=== PATIENT | female | born 2000 | race African-American/Black ===

== ENCOUNTER 2021-01-09 06:15 | Emergency (ER) | payer BC, OTHER, SELFPAY ==
[2021-01-09 07:42] LABS: Absolute Lymphocytes (CBC) 0.4 K/uL (0.7-4.9); Basophils % 0.4 % (0-1.3); Hematocrit 34.9 % (36.0-45.0); Lymphocytes % 2.8 % (15.3-44.8); MPV 9.3 fL (7.6-11.3); RBC Red Blood Cell Count 4.47 M/uL (3.86-4.86)
[2021-01-09] MEDS ORDERED: MORPHINE 4 MG/ML SYR ONE ×2 (07:45→10:22)
[2021-01-09] MEDS ORDERED: MAGNES/ALUMIN/SIMET 30ML UCUP ONE (07:45)
[2021-01-09] MEDS ORDERED: ONDANSETRON 4 MG/2 ML VIAL ONE ×2 (07:45→13:51)
[2021-01-09] MEDS ORDERED: NA CHLORIDE 0.9% 1,000 ML ONE ×2 (07:46→10:17)
[2021-01-09] MEDS ORDERED: FAMOTIDINE 20 MG/2 ML VIAL IV ONE (07:46)
[2021-01-09] MEDS ORDERED: LIDOCAINE VISCOUS 2% SOLN 15 ML UDC ONE (07:46)
[2021-01-09 07:56] LABS: ALT/SGPT 35 U/L (12-78); AST/SGOT 51 U/L (15-37); Albumin 3.3 g/dL (3.4-5.0); Alkaline Phosphatase 48 U/L (45-117); BUN Blood Urea Nitrogen 12 mg/dL (7-18); Bicarbonate 25 mmol/L (21-32); Bilirubin Direct 0.1 mg/dL (0-0.2); Bilirubin Total 0.4 mg/dL (0.2-1.0); Glucose Level 120 mg/dL (74-106); Lipase 93 U/L (73-393); Potassium 3.5 mmol/L (3.5-5.1); Protein, Total 7.6 g/dL (6.4-8.2); Sodium Level 141 mmol/L (136-145)
[2021-01-09 09:48] LABS: Blood Morphology Comment NOT SEEN (NOT SEEN); Platelet Estimate ADEQ
[2021-01-09 10:20] LABS: Urine Blood 1+ (Negative); Urine Protein NEGATIVE (NEG); Urine Specific Gravity 1.025 (1.005-1.030); Urine pH 6.5 (5.0-7.0)
--- NOTE | 2021-01-09 10:35 | RAD REPORT ---
EXAM DESCRIPTION: CTAbdomen Pelvis W Contrast - 01/09/2021 10:18 am CLINICAL HISTORY: Abdominal pain. ABD PAIN COMPARISON: No comparisons TECHNIQUE: Biphasic CT imaging of the abdomen and pelvis was performed with 100 ml non-ionic IV cont rast. All CT scans are performed using dose optimization technique as appropriate and may include automated exposure control or mA/KV adjustment according to patient size. FINDINGS: The lung bases are clear. The liver has a somewhat heterogenous enhancement pattern with mild periportal edema. No aggressive l iver mass is seen. No intra or extrahepatic biliary tree dilatation. The spleen, pancreas, adrenal glands and kidneys are within normal limits. No bowel obstruction, free air, intra-abdominal free fluid or abscess. The appendix is not identifie d as a discrete structure, however, no secondary findings of appendicitis are identified. Moderate r etained stool throughout the colon. No evidence of significant lymphadenopathy. Mild endometrial flui d with trace amount of pelvic free fluid noted. No suspicious bony findings. IMPRESSION: Heterogenous liver enhancement pattern with mild periportal edema. Underlying hepatic in flammation is a possibility. Small amount of pelvic free fluid is seen with fluid within the endometrium as well. Suggest correlat ion for the possibility of pelvic infection.
[2021-01-09 10:42] LABS: Urine Glucose Trace (Negative)
--- NOTE | 2021-01-09 13:48 | EDPHYS ---
Physician Documentation [facility] Name: Veda Miller Age: 20 yrs Sex: Female : 2000 Arrival Date: 01/09/2021 Time: 06:16 Bed 13 Private MD: ED Physician Isiah Moore HPI: 01/09 06:57 This 20 yrs old Black Female presents to ER via Ambulatory with complaints of ma2 EPIGASTRIC ABD PAIN Pain. 06:57 The patient or guardian reports chest pain that is located primarily in the epigastric ma2 area. The pain does not radiate. Associated signs and symptoms: Pertinent negatives: cough, headache, lower extremity swelling, lightheadedness, shortness of breath, syncope, vomiting. Severity of pain: At its worst the pain was moderate in the emergency department the pain is unchanged. The patient has not experienced similar symptoms in the past. 06:57 The patient has experienced similar episodes in the past. 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 - Social history:: Smoking status: Patient denies any tobacco usage or history of. Patient/guardian denies using alcohol, street drugs, Patient/guardian denies using The patient lives with family. - Family history:: not pertinent. ROS: 06:57 Constitutional: Negative for fever, chills, and weight loss. ma2 06:57 All other systems are negative. Exam: 06:57 Constitutional: This is a well developed, well nourished patient who is awake, alert, ma2 and in no acute distress. Head/Face: Normocephalic, atraumatic. Eyes: Pupils equal round and reactive to light, extra-ocular motions intact. Lids and lashes normal. Conjunctiva and sclera are non-icteric and not injected. Cornea within normal limits. Periorbital areas with no swelling, redness, or edema. ENT: Nares patent. No nasal discharge, no septal abnormalities noted. Tympanic membranes are normal and external auditory canals are clear. Oropharynx with no redness, swelling, or masses, exudates, or evidence of obstruction, uvula midline. Mucous membranes moist. Neck: Trachea midline, no thyromegaly or masses palpated, and no cervical lymphadenopathy. Supple, full range of motion without nuchal rigidity, or vertebral point tenderness. No Meningismus. Chest/axilla: Normal chest wall appearance and motion. Nontender with no deformity. No lesions are appreciated. Cardiovascular: Regular rate and rhythm with a normal S1 and S2. No gallops, murmurs, or rubs. Normal PMI, no JVD. No pulse deficits. Respiratory: Lungs have equal breath sounds bilaterally, clear to auscultation and percussion. No rales, rhonchi or wheezes noted. No increased work of breathing, no retractions or nasal flaring. Abdomen/GI: MILDLY TENDER IN EPIGASTRIC AREA, OTHERWISE Soft, with normal bowel sounds. No distension or tympany. No guarding or rebound. No evidence of tenderness ANYWHERE ELSE IN THE ABDOMIN OTHER THAN EPIGASTRIC AREA Back: No spinal tenderness. No costovertebral tenderness. Full range of motion. Skin: Warm, dry with normal turgor. Normal color with no rashes, no lesions, and no evidence of cellulitis. MS/ Extremity: Pulses equal, no cyanosis. Neurovascular intact. Full, normal range of motion. Neuro: Awake and alert, GCS 15, oriented to person, place, time, and situation. Cranial nerves II-XII grossly intact. Motor strength 5/5 in all extremities. Sensory grossly intact. Cerebellar exam normal. Normal gait. 13:38 : Pelvic Exam: External exam: is normal, Speculum exam: mild bleeding, os that is kdr closed, bimanual exam reveals no cervical motion tenderness. Vital Signs: 06:39 Weight 59.42 kg (R); Height 5 ft. 0 in. (152.40 cm) (R); Pain 8/10; bb 06:51 BP 124 / 74; Pulse 120; Resp 16; Temp 99.3(TE); Pulse Ox 100% on R/A; Pain 8/10; jb4 07:40 BP 119 / 81; Pulse 101; Resp 18 S; Pulse Ox 98% on R/A; jd3 09:09 BP 116 / 72; Pulse 99; Resp 17 S; Pulse Ox 100% on R/A; jd3 10:09 BP 126 / 91; Pulse 98; Resp 17 S; Pulse Ox 98% on R/A; jd3 12:37 BP 113 / 72; Pulse 99; Resp 16 S; Pulse Ox 99% on R/A; jd3 14:44 BP 117 / 70; Pulse 93; Resp 16 S; Pulse Ox 99% on R/A; jd3 06:39 Body Mass Index 25.58 (59.42 kg, 152.40 cm) bb MDM: 06:30 Patient medically screened. ma2 06:57 Differential diagnosis: anxiety, esophagitis, gastritis, gastroesophageal reflux ma2 disease (GERD). Data reviewed: vital signs, nurses notes. Counseling: I had a detailed discussion with the patient and/or guardian regarding: the historical points, exam findings, and any diagnostic results supporting the discharge/admit diagnosis, the presence of at least one elevated blood pressure reading (>120/80) during this emergency department visit. 09:55 ED course: The patient states that her pain is returning and on exam she continues to kdr be mildly tachycardic. 01/09 06:57 Order name: Basic Metabolic Panel [facility] 01/09 06:57 Order name: CBC with Diff [facility] 01/09 06:57 Order name: Hepatic Function [facility] 01/09 06:57 Order name: Lipase [facility] 01/09 06:57 Order name: Test, Serum [facility] 01/09 06:57 Order name: Basic Metabolic Panel; Complete Time: 08:00 [facility] 01/09 06:57 Order name: CBC with Automated Diff; Complete Time: 10:40 [facility] 01/09 06:57 Order name: Liver (Hepatic) Function; Complete Time: 08:00 [facility] 01/09 06:57 Order name: Lipase; Complete Time: 08:00 [facility] 01/09 06:58 Order name: Test Serum, Qualitat; Complete Time: 08:00 [facility] 01/09 07:43 Order name: Manual Differential; Complete Time: 10:40 [facility] 01/09 09:55 Order name: Urine Dipstick--Ancillary (enter results) 01/09 10:20 Order name: Urine Dipstick-Ancillary; Complete Time: 11:28 [facility] 01/09 11:30 Order name: Hepatitis Panel [facility] 01/09 06:57 Order name: IV Saline Lock; Complete Time: 07:25 [facility] 01/09 06:57 Order name: Labs collected and sent; Complete Time: 07:25 [facility] 01/09 09:55 Order name: CT Abd/Pelvis - IV Contrast Only [facility] 01/09 10:36 Order name: CT; Complete Time: 10:40 [facility] 01/09 11:47 Order name: GC (GONORR/CHLAMYDIA) Probe [facility] 01/09 11:47 Order name: Wet Prep; Complete Time: 13:37 kdr 01/09 06:57 Order name: Urine Dipstick-Ancillary (obtain specimen); Complete Time: 09:55 [facility] 01/09 07:08 Order name: EKG - Nurse/Tech; Complete Time: 07:08 jb4 Administered Medications: 07:38 Drug: NS 0.9% 1000 ml Route: IV; Rate: 1 bolus; Site: right antecubital; jd3 07:38 Drug: Pepcid 20 mg Route: IVP; Site: right antecubital; jd3 07:38 Drug: Zofran (Ondansetron) 4 mg Route: IVP; Site: right antecubital; jd3 07:39 Drug: GI Cocktail without - (Maalox Suspension 30 ml, Lidocaine Liquid 2 % 15 jd3 ml) Route: PO; 07:39 Drug: morphine 4 mg Route: IVP; Site: right antecubital; jd3 10:08 Drug: NS 0.9% 1000 ml Route: IV; Rate: 1 bolus; Site: right antecubital; jd3 10:08 Drug: morphine 4 mg Route: IVP; Site: right antecubital; jd3 13:36 Drug: Zofran (Ondansetron) 4 mg Route: IVP; Site: right antecubital; jd3 14:33 Drug: Rocephin - (cefTRIAXone) 1 grams {Note: IV push given per verbal order..} Route: jd3 IVPB; Infused Over: 30 mins; Site: right antecubital; 14:33 Drug: AZITHromycin 1 grams Route: PO; jd3 Disposition: 01/09/21 13:47 Discharged to Home. Impression: Upper abdominal pain, unspecified, Nausea and vomiting. - Condition is Stable. - Discharge Instructions: Abdominal Pain, Adult, Abdominal Pain, Adult, [id number]. - Prescriptions for Zofran 4 mg Oral Tablet - take 1 tablet by ORAL route every 12 hours As needed; 20 tablet. Diclofenac Sodium 75 mg Oral Tablet Sustained Release - take 1 tablet by ORAL route 2 times per day; 30 tablet. Pepcid 20 mg Oral Tablet - take 1 tablet by ORAL route once daily; 20 tablet. Flagyl 500 mg Oral Tablet - take 1 tablet by ORAL route every 12 hours for 10 days; 20 tablet. Levaquin 500 mg Oral Tablet - take 1 tablet by ORAL route once daily for 10 days; 10 tablet. - Medication Reconciliation Form, Thank You Letter, Antibiotic Education, Prescription Opioid Use, Work release form form. - Follow up: Private Physician; When: Tomorrow; Reason: If symptoms return, Continuance of care. - Problem is new. - Symptoms have improved. Signatures: Dispatcher [employer] EDMS Isiah Moore MD MD kdr Faby Sanchez RN RN bb Richard Dean RN RN jb4 Luis Miguel Friend RN RN jd3 Amie Waters MD MD ma2 Corrections: (The following items were deleted from the chart) 14:45 13:47 01/09/2021 13:47 Discharged to Home. Impression: Upper abdominal pain, jd3 unspecified; Nausea and vomiting. Condition is Stable. Discharge Instructions: Abdominal Pain, Adult, Abdominal Pain, Adult, [id number]. Prescriptions for Zofran 4 mg Oral Tablet - take 1 tablet by ORAL route every 12 hours As needed; 20 tablet, Diclofenac Sodium 75 mg Oral Tablet Sustained Release - take 1 tablet by ORAL route 2 times per day; 30 tablet, Pepcid 20 mg Oral Tablet - take 1 tablet by ORAL route once daily; 20 tablet. and Forms are Medication Reconciliation Form, Thank You Letter, Antibiotic Education, Prescription Opioid Use. Follow up: Private Physician; When: Tomorrow; Reason: If symptoms return, Continuance of care. Problem is new. Symptoms have improved. kdr
--- NOTE | 2021-01-09 13:48 | ER ---
Nurse's Notes [facility] Name: Veda Miller Age: 20 yrs Sex: Female : 2000 Arrival Date: 01/09/2021 Time: 06:16 Bed 13 Private MD: Diagnosis: Upper abdominal pain, unspecified;Nausea and vomiting Presentation: 01/09 06:39 Chief complaint: Patient states: she is having pain between her chest and her abdomen bb with diarrhea x 1 since she woke up this morning. Pt was seen by the dentist Tuesday or Tuesday and has been having a headache since then she also had an allergic reaction to the amoxicillin she was given so it was changed to Clindamycin. Coronavirus screen: At this time, the client does not indicate any symptoms associated with coronavirus-19. Ebola Screen: No symptoms or risks identified at this time. Initial Sepsis Screen: Does the patient meet any 2 criteria?. Risk Assessment: Do you want to hurt yourself or someone else? Patient reports no desire to harm self or others. Onset of symptoms was January 09, 2021. 06:39 Method Of Arrival: Ambulatory bb 06:39 Acuity: DAVE 3 bb 07:41 Initial Sepsis Screen: Does the patient have a suspected source of infection? No. jd3 Patient's initial sepsis screen is negative. 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 - Social history:: Smoking status: Patient denies any tobacco usage or history of. Patient/guardian denies using alcohol, street drugs, Patient/guardian denies using The patient lives with family. - Family history:: not pertinent. Screenin:30 Abuse screen: Denies threats or abuse. Nutritional screening: No deficits noted. jb4 Tuberculosis screening: No symptoms or risk factors identified. Fall Risk None identified. Assessment: 06:30 General: Appears in no apparent distress. uncomfortable, Behavior is calm, cooperative, jb4 appropriate for age, Provider notified of pt's currently having chest pain, Okayed to do EKG. Pain: Complains of pain in epigastric area Pain does not radiate. Pain currently is 10 out of 10 on a pain scale. Quality of pain is described as sharp, Pain began 1 day ago. Neuro: Level of Consciousness is awake, alert, obeys commands, Oriented to person, place, time, situation. Cardiovascular: Patient's skin is warm and dry. Rhythm is sinus tachycardia. Respiratory: Airway is patent Respiratory effort is even, unlabored, Respiratory pattern is regular, symmetrical. GI: No signs and/or symptoms were reported involving the gastrointestinal system. : No signs and/or symptoms were reported regarding the genitourinary system. EENT: No signs and/or symptoms were reported regarding the EENT system. Derm: Skin is intact, Skin is pink, warm \T\ dry. Musculoskeletal: Circulation, motion, and sensation intact. Range of motion: intact in all extremities. 07:39 General: Appears in no apparent distress. uncomfortable, Behavior is calm, cooperative, jd3 appropriate for age. Pain: Complains of pain in epigastric area Quality of pain is described as sharp. Neuro: Level of Consciousness is awake, alert, obeys commands, Oriented to person, place, time, situation. Cardiovascular: Capillary refill < 3 seconds Patient's skin is warm and dry. Rhythm is sinus tachycardia. Respiratory: Airway is patent Respiratory effort is even, unlabored, Respiratory pattern is regular, symmetrical, Denies cough, shortness of breath. GI: Abdomen is flat, non-distended, Reports upper abdominal pain, nausea. 09:09 Reassessment: Patient appears in no apparent distress at this time. Patient and/or jd3 family updated on plan of care and expected duration. Pain level reassessed. Patient is alert, oriented x 3, equal unlabored respirations, skin warm/dry/pink. Patient states feeling better. 10:09 Reassessment: Patient appears in no apparent distress at this time. Patient and/or jd3 family updated on plan of care and expected duration. Pain level reassessed. Patient is alert, oriented x 3, equal unlabored respirations, skin warm/dry/pink. pt reporting pain starting to return, provider notified, medicated as prescribed see DEC. 11:30 Reassessment: Patient appears in no apparent distress at this time. Patient and/or jd3 family updated on plan of care and expected duration. Pain level reassessed. Patient is alert, oriented x 3, equal unlabored respirations, skin warm/dry/pink. 12:30 Reassessment: Patient appears in no apparent distress at this time. Patient and/or jd3 family updated on plan of care and expected duration. Pain level reassessed. Patient is alert, oriented x 3, equal unlabored respirations, skin warm/dry/pink. pelvic exam done by Dr. Moore with Ute RN at bedside to assist. 14:44 Reassessment: Patient appears in no apparent distress at this time. Patient and/or jd3 family updated on plan of care and expected duration. Pain level reassessed. Patient is alert, oriented x 3, equal unlabored respirations, skin warm/dry/pink. Patient states feeling better. Vital Signs: 06:39 Weight 59.42 kg (R); Height 5 ft. 0 in. (152.40 cm) (R); Pain 8/10; bb 06:51 BP 124 / 74; Pulse 120; Resp 16; Temp 99.3(TE); Pulse Ox 100% on R/A; Pain 8/10; jb4 07:40 BP 119 / 81; Pulse 101; Resp 18 S; Pulse Ox 98% on R/A; jd3 09:09 BP 116 / 72; Pulse 99; Resp 17 S; Pulse Ox 100% on R/A; jd3 10:09 BP 126 / 91; Pulse 98; Resp 17 S; Pulse Ox 98% on R/A; jd3 12:37 BP 113 / 72; Pulse 99; Resp 16 S; Pulse Ox 99% on R/A; jd3 14:44 BP 117 / 70; Pulse 93; Resp 16 S; Pulse Ox 99% on R/A; jd3 06:39 Body Mass Index 25.58 (59.42 kg, 152.40 cm) bb ED Course: 06:16 Patient arrived in ED. ag3 06:30 Amie Waters MD is Attending Physician. ma2 06:30 Patient has correct armband on for positive identification. Placed in gown. Bed in low jb4 position. Call light in reach. Side rails up X 1. manager endoscopy on. Pulse ox on. NIBP on. 06:30 Patient maintains SpO2 saturation greater than 95% on room air. jb4 06:42 Triage completed. bb 06:43 Arm band placed on Patient placed in an exam room, on a stretcher, on pulse oximetry. bb Family accompanied patient. 06:47 Richard Dean, CARITO is Primary Nurse. jb4 07:16 Attending Physician role handed off by Amie Waters MD kdr 07:16 Isiah Moore MD is Attending Physician. kdr 07:39 Inserted saline lock: 20 gauge in right antecubital area, using aseptic technique. jd3 Blood collected. 12:24 Assist provider with pelvic exam: Set up pelvic tray. Performed by Isiah Moore MD ss Specimens sent to lab. Patient tolerated well. Served as a grey stock recorder during rectal exam. 14:45 IV discontinued, intact, bleeding controlled, No redness/swelling at site. Pressure jd3 dressing applied. Administered Medications: 07:38 Drug: NS 0.9% 1000 ml Route: IV; Rate: 1 bolus; Site: right antecubital; jd3 07:38 Drug: Pepcid 20 mg Route: IVP; Site: right antecubital; jd3 07:38 Drug: Zofran (Ondansetron) 4 mg Route: IVP; Site: right antecubital; jd3 07:39 Drug: GI Cocktail without - (Maalox Suspension 30 ml, Lidocaine Liquid 2 % 15 jd3 ml) Route: PO; 07:39 Drug: morphine 4 mg Route: IVP; Site: right antecubital; jd3 10:08 Drug: NS 0.9% 1000 ml Route: IV; Rate: 1 bolus; Site: right antecubital; jd3 10:08 Drug: morphine 4 mg Route: IVP; Site: right antecubital; jd3 13:36 Drug: Zofran (Ondansetron) 4 mg Route: IVP; Site: right antecubital; jd3 14:33 Drug: Rocephin - (cefTRIAXone) 1 grams {Note: IV push given per verbal order..} Route: jd3 IVPB; Infused Over: 30 mins; Site: right antecubital; 14:33 Drug: AZITHromycin 1 grams Route: PO; jd3 Outcome: 13:47 Discharge ordered by . kdr 14:44 Discharged to home ambulatory, with family. jd3 14:44 Condition: stable 14:44 Discharge instructions given to patient, family, Instructed on discharge instructions, follow up and referral plans. medication usage, Demonstrated understanding of instructions, follow-up care, medications, Prescriptions given X 4. 14:45 Patient left the ED. jd3 Signatures: Isiah Moore MD MD kdr Faby Sanchez RN RN bb Ute Brown RN RN ss Richard Dean RN RN jb4 Luis Miguel Friend RN RN jd3 Amie Waters MD MD ma2 Cristy Sanchez3
[2021-01-09] MEDS ORDERED: AZITHROMYCIN 250 MG TAB ONE (14:35)
[2021-01-09] MEDS ORDERED: CEFTRIAXONE/SWI 1gm 1 GM/10 ML SYR ONE (14:36)
[2021-01-09 15:00] VITALS: TEMP 99.3
[2021-01-09 15:05] VITALS: O2SAT 99
[2021-01-09 15:07] VITALS: BP 117/70
[2021-01-11 13:59] LABS: C.trachomatis RNA,TMA Not Detected (Not Detected)
[2021-01-12 12:56] LABS: HBsAG Nonreactive (Nonreactive)
== END 2021-01-09 14:45 | disposition home or self-care (01) ==
LOC: ER 06:15
DX: R10.10 Upper abdominal pain, unspecified (principal); R11.2 Nausea with vomiting, unspecified; C91.00 Acute lymphoblastic leukemia not having achieved remission
CPT/HCPCS: 36415; 74177; 80048; 80074; 80076; 81003; 83690; 84703; 85025; 87210; 87490; 87590; 93005; 96374; 96375; 99285; J0696; J2405; J7030; Q9967

== ENCOUNTER 2021-08-15 09:59 | Emergency (ER) | payer BC, SELFPAY ==
[2021-08-15 10:46] LABS: Urine Blood Trace-intact (Negative); Urine Glucose Negative (Negative); Urine Protein Negative (Negative); Urine Specific Gravity 1.025 (1.005-1.030); Urine pH 6.5 (5.0-7.0)
[2021-08-15 11:01] LABS: Absolute Lymphocytes (CBC) 1.3 K/uL (0.7-4.9); Basophils % 1.1 % (0-1.3); Hematocrit 41.8 % (36.0-45.0); Lymphocytes % 33.6 % (15.3-44.8); MPV 8.8 fL (7.6-11.3); RBC Red Blood Cell Count 5.11 M/uL (3.86-4.86)
[2021-08-15 11:09] LABS: ALT/SGPT 25 U/L (12-78); AST/SGOT 20 U/L (15-37); Albumin 4.6 g/dL (3.4-5.0); Alkaline Phosphatase 57 U/L (45-117); BUN Blood Urea Nitrogen 16 mg/dL (7-18); Bicarbonate 25 mmol/L (21-32); Bilirubin Direct 0.2 mg/dL (0-0.2); Bilirubin Total 1.2 mg/dL (0.2-1.0); Glucose Level 90 mg/dL (74-106); Lipase 102 U/L (73-393); Potassium 3.7 mmol/L (3.5-5.1); Protein, Total 9.7 g/dL (6.4-8.2); Sodium Level 137 mmol/L (136-145)
[2021-08-15 11:50] LABS: Urine Specific Gravity/Preg 1.025 (1.005-1.030)
--- NOTE | 2021-08-15 12:20 | RAD REPORT ---
EXAM DESCRIPTION: US - Pelvis Complete - 08/15/2021 12:05 pm CLINICAL HISTORY: with pelvic pain and vaginal bleeding COMPARISON: None FINDINGS: The uterus measures 7 x 3 x 5 centimeters. The endometrial stripe is normal thickness. A g estational sac is not visualized. No fibroid noted. The right and left ovaries are normal in size and echotexture. Right and left adnexal unremarkable No significant free fluid IMPRESSION: Nonvisualization of a gestational sac within the endometrium. This may be a normal intra uterine in which the gestational sac is not visualized secondary to early gestational age. Incomplete and ectopic can also have this appearance. This all should be correlate d clinically and with appropriate lab values. A followup endovaginal sonogram in 1 week recommended f or re-evaluation
--- NOTE | 2021-08-15 13:37 | ER ---
Nurse's Notes [facility] Name: Veda Miller Age: 20 yrs Sex: Female : 2000 Arrival Date: 08/15/2021 Time: 10:02 Bed 20 Private MD: Diagnosis: Threatened Presentation: 08/15 10:06 Chief complaint: Patient states: positive home test 2 days ago, reports abd aa5 cramping, and states "I thought I got my period on the and I bled for 3 days and then it stopped". Coronavirus screen: At this time, the client does not indicate any symptoms associated with coronavirus-19. Ebola Screen: No symptoms or risks identified at this time. Initial Sepsis Screen: Does the patient meet any 2 criteria? No. Patient's initial sepsis screen is negative. Does the patient have a suspected source of infection? No. Patient's initial sepsis screen is negative. Risk Assessment: Do you want to hurt yourself or someone else? Patient reports no desire to harm self or others. Onset of symptoms was July 2021. 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 - Social history:: Smoking status: Patient denies any tobacco usage or history of. - Family history:: not pertinent. Screenin:12 Abuse screen: Denies threats or abuse. Nutritional screening: No deficits noted. sl2 Tuberculosis screening: No symptoms or risk factors identified. Fall Risk None identified. Assessment: 10:12 Reassessment: Patient AAO X 3, ambulatory with steady gait, c/o cramping pelvic pain sl2 with vaginal spotting, had positive test at home, states LMP was 08/07/21 and lasted 3 days then stopped - states normal menses usually last 7 days. Denies other untoward symptoms. General: Appears in no apparent distress. well groomed, well developed, Behavior is calm, cooperative, Reports intermittent pelvic pain, vaginal spotting and positive test. Pain: Denies pain. Neuro: No deficits noted. Cardiovascular: No deficits noted. Respiratory: No deficits noted. GI: No deficits noted. : No deficits noted. EENT: No deficits noted. Derm: No deficits noted. Musculoskeletal: No deficits noted. 10:16 Reassessment: Patient encouraged to provide urine specimen, ambulated to restroom with sl2 steady gait - no sign of acute distress noted. 10:16 Obstetrical Assessment: General assessment: awake and alert, Contractions Patient sl2 reports Positive test, c/o intermittent pelvic pain with spotty vaginal bleeding. LMP 08/07/21. 11:18 Reassessment: Pelvic ultrasound in progress at bedside - patient tolerating well. sl2 12:15 Reassessment: Patient lying quietly in bed - denies pain or discomfort at this time, sl2 awaiting ultrasound results, family / mother present at bedside. Vital Signs: 10:07 BP 132 / 85; Pulse 85; Resp 18 S; Temp 98.3(O); Pulse Ox 100% on R/A; Weight 58.06 kg aa5 (R); Height 5 ft. 0 in. (152.40 cm) (R); Pain 6/10; 11:29 BP 130 / 82; Pulse 82; Resp 18; Temp 98.2(O); Pulse Ox 100% on R/A; sl2 12:14 BP 121 / 83; Pulse 70; Resp 18; Temp 98.1(O); Pulse Ox 100% on R/A; sl2 10:07 Body Mass Index 25.00 (58.06 kg, 152.40 cm) aa5 ED Course: 10:02 Patient arrived in ED. as 10:06 Arm band placed on. aa5 10:07 Triage completed. aa5 10:08 Rishi Hollis PA is PHCP. jmm 10:08 Amie Waters MD is Attending Physician. jmm 10:12 Daniela Levy, CARITO is Primary Nurse. sl2 10:12 Patient has correct armband on for positive identification. Placed in gown. Bed in low sl2 position. 12:05 US Pelvis Complete In Process Unspecified. EDMS 12:16 Transvaginal Study Probe In Process Unspecified. EDMS 13:36 Pk Collins MD is Referral Physician. ma2 14:06 No provider procedures requiring assistance completed. Patient did not have IV access ss during this emergency room visit. Administered Medications: No medications were administered Outcome: 13:36 Discharge ordered by . ma2 14:06 Discharged to home ambulatory, with family. ss 14:06 Condition: good 14:06 Discharge instructions given to patient, family, Instructed on discharge instructions, follow up and referral plans. Demonstrated understanding of instructions, follow-up care, medications. 14:07 Patient left the ED. ss Signatures: Dispatcher [employer] EDMS Rishi Hollis PA PA Evon Gaxiola Audri, RN RN aa5 Ute Brown RN RN ss Amie Waters MD MD ma2 Daniela Levy RN RN sl2
--- NOTE | 2021-08-15 13:37 | EDPHYS ---
Physician Documentation [facility] Name: Veda Miller Age: 20 yrs Sex: Female : 2000 Arrival Date: 08/15/2021 Time: 10:02 Bed 20 Private MD: ED Physician Amie Waters HPI: 08/15 10:31 This 20 yrs old Black Female presents to ER via Ambulatory with complaints of Pelvic ma2 Pain, Vaginal Bleeding, + Preg <12wks. 10:31 The patient presents to the emergency department with vaginal bleeding, that is light. ma2 The estimated gestational age is 5 weeks. Associated signs and symptoms: Pertinent negatives: dysuria, frequency, seizure, vaginal bleeding. The patient has not experienced similar symptoms in the past. 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 - Social history:: Smoking status: Patient denies any tobacco usage or history of. - Family history:: not pertinent. ROS: 10:31 Constitutional: Negative for fever, chills, and weight loss. ma2 10:31 All other systems are negative. Exam: 10:31 Constitutional: This is a well developed, well nourished patient who is awake, alert, ma2 and in no acute distress. Eyes: Pupils equal round and reactive to light, extra-ocular motions intact. Lids and lashes normal. Conjunctiva and sclera are non-icteric and not injected. Cornea within normal limits. Periorbital areas with no swelling, redness, or edema. ENT: Nares patent. No nasal discharge, no septal abnormalities noted. Tympanic membranes are normal and external auditory canals are clear. Oropharynx with no redness, swelling, or masses, exudates, or evidence of obstruction, uvula midline. Mucous membranes moist. Neck: Trachea midline, no thyromegaly or masses palpated, and no cervical lymphadenopathy. Supple, full range of motion without nuchal rigidity, or vertebral point tenderness. No Meningismus. Chest/axilla: Normal chest wall appearance and motion. Nontender with no deformity. No lesions are appreciated. Cardiovascular: Regular rate and rhythm with a normal S1 and S2. No gallops, murmurs, or rubs. Normal PMI, no JVD. No pulse deficits. Respiratory: Lungs have equal breath sounds bilaterally, clear to auscultation and percussion. No rales, rhonchi or wheezes noted. No increased work of breathing, no retractions or nasal flaring. Abdomen/GI: Soft, non-tender, with normal bowel sounds. No distension or tympany. No guarding or rebound. No evidence of tenderness throughout. Back: No spinal tenderness. No costovertebral tenderness. Full range of motion. Skin: Warm, dry with normal turgor. Normal color with no rashes, no lesions, and no evidence of cellulitis. MS/ Extremity: Pulses equal, no cyanosis. Neurovascular intact. Full, normal range of motion. Neuro: Awake and alert, GCS 15, oriented to person, place, time, and situation. Cranial nerves II-XII grossly intact. Motor strength 5/5 in all extremities. Sensory grossly intact. Cerebellar exam normal. Normal gait. Vital Signs: 10:07 BP 132 / 85; Pulse 85; Resp 18 S; Temp 98.3(O); Pulse Ox 100% on R/A; Weight 58.06 kg aa5 (R); Height 5 ft. 0 in. (152.40 cm) (R); Pain 6/10; 11:29 BP 130 / 82; Pulse 82; Resp 18; Temp 98.2(O); Pulse Ox 100% on R/A; sl2 12:14 BP 121 / 83; Pulse 70; Resp 18; Temp 98.1(O); Pulse Ox 100% on R/A; sl2 10:07 Body Mass Index 25.00 (58.06 kg, 152.40 cm) aa5 MDM: 10:31 Differential diagnosis: STD, ectopic . [facility] 13:34 Data reviewed: vital signs, nurses notes. Counseling: I had a detailed discussion with ma2 the patient and/or guardian regarding: the historical points, exam findings, and any diagnostic results supporting the discharge/admit diagnosis, the presence of at least one elevated blood pressure reading (>120/80) during this emergency department visit, the need for outpatient follow up. Counseling: I had a detailed discussion with the patient and/or guardian regarding: needs bhcg recheck in 2 days and us pelvis and return to er for any worsening of pain, i explained that to her and she understands and aware . Response to treatment: the patient's symptoms have resolved after treatment. 13:36 Patient medically screened. ar2 08/15 10:25 Order name: Basic Metabolic Panel; Complete Time: 11:41 ar2 08/15 10:25 Order name: CBC with Diff; Complete Time: 11:15 ar2 08/15 10:25 Order name: Hepatic Function; Complete Time: 11:41 ma2 08/15 10:25 Order name: Lipase; Complete Time: 11:41 ar2 08/15 10:46 Order name: Urine Dipstick-Ancillary; Complete Time: 10:50 EDMS 08/15 10:46 Order name: Urine Dipstick-Ancillary EDWA 08/15 10:25 Order name: Labs collected and sent; Complete Time: 10:48 ar2 08/15 10:25 Order name: Urine Dipstick-Ancillary (obtain specimen); Complete Time: 10:48 ar2 08/15 10:50 Order name: HCG-Quantitative ss 08/15 10:50 Order name: US Pelvis Complete; Complete Time: 12:28 ss 08/15 10:51 Order name: Urine --Ancillary (enter results); Complete Time: 12:00 ss 08/15 12:16 Order name: Transvaginal Study Probe [facility] 08/15 10:25 Order name: Urine Test (obtain specimen); Complete Time: 10:48 ma2 Administered Medications: No medications were administered Disposition Summary: 08/15/21 13:36 Discharge Ordered Location: Home ma2 Condition: Stable ma2 Diagnosis - Threatened ma2 Followup: ma2 - With: Pk Collins MD - When: Tomorrow - Reason: Continuance of care Discharge Instructions: - Discharge Summary Sheet ma2 - Threatened Miscarriage ma2 Forms: - Medication Reconciliation Form ma2 - Thank You Letter ma2 - Antibiotic Education ma2 - Prescription Opioid Use ma2 Signatures: Dispatcher [employer] EDSoledad Jorge RN RN aa5 Amie Waters MD MD ma2 Corrections: (The following items were deleted from the chart) 10:49 10:25 Abdomen Pelvis W Con+CT.RAD.BRZ ordered. EDMS EDMS
[2021-08-15 14:11] VITALS: O2SAT 100
[2021-08-15 14:14] VITALS: BP 121/83; TEMP 98.1
--- NOTE | 2021-08-17 16:10 | RAD REPORT ---
EXAM DESCRIPTION: US - Transvaginal Study Probe - 08/15/2021 12:16 pm CLINICAL HISTORY: with pelvic pain and vaginal bleeding COMPARISON: None FINDINGS: The uterus measures 7 x 3 x 5 centimeters. The endometrial stripe is normal thickness. A g estational sac is not visualized. No fibroid noted. The right and left ovaries are normal in size and echotexture. Right and left adnexal unremarkable No significant free fluid IMPRESSION: Nonvisualization of a gestational sac within the endometrium. This may be a normal intra uterine in which the gestational sac is not visualized secondary to early gestational age. Incomplete and ectopic can also have this appearance. This all should be correlate d clinically and with appropriate lab values. A followup endovaginal sonogram in 1 week recommended f or re-evaluation
== END 2021-08-15 14:07 | disposition home or self-care (01) ==
LOC: ER 09:59
DX: O20.0 Threatened abortion (principal); Z3A.01 Less than 8 weeks gestation of pregnancy; Z88.1 Allergy status to other antibiotic agents
CPT/HCPCS: 36415; 76830; 76856; 80048; 80076; 81003; 81025; 83690; 84702; 85025; 99283

== ENCOUNTER 2021-08-17 19:20 | Emergency (ER) | payer SELFPAY ==
--- NOTE | 2021-08-17 20:28 | ER ---
Nurse's Notes [facility] Name: Veda Miller Age: 20 yrs Sex: Female : 2000 Arrival Date: 08/17/2021 Time: 19:25 Bed Treatment Private MD: Diagnosis: Complete or unspecified spontaneous without complication Presentation: 08/17 19:54 Chief complaint: Patient states: abd cramps X 2 days, is here for HCG recheck , was iw seen here two days ago. Coronavirus screen: At this time, the client does not indicate any symptoms associated with coronavirus-19. Ebola Screen: Patient negative for fever greater than or equal to 101.5 degrees Fahrenheit, and additional compatible Ebola Virus Disease symptoms Patient denies exposure to infectious person. Patient denies travel to an Ebola-affected area in the 21 days before illness onset. No symptoms or risks identified at this time. Initial Sepsis Screen: Does the patient meet any 2 criteria? No. Patient's initial sepsis screen is negative. Does the patient have a suspected source of infection? No. Patient's initial sepsis screen is negative. Risk Assessment: Do you want to hurt yourself or someone else? Patient reports no desire to harm self or others. Onset of symptoms was August 17, 2021. 19:54 Method Of Arrival: Ambulatory iw 19:54 Acuity: DAVE 4 iw Triage Assessment: 20:05 General: Appears in no apparent distress. comfortable, well groomed, well developed, jh5 well nourished, Behavior is calm, cooperative. Pain: Denies pain. 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 - Social history:: Smoking status: Patient denies any tobacco usage or history of. Screenin:28 Abuse screen: Denies threats or abuse. Denies injuries from another. Nutritional jh5 screening: No deficits noted. Tuberculosis screening: No symptoms or risk factors identified. Fall Risk None identified. Assessment: 20:06 Neuro: No deficits noted. Level of Consciousness is awake, alert, obeys commands, jh5 Oriented to person, place, time, situation, Speech is normal. Cardiovascular: Capillary refill < 3 seconds Patient's skin is warm and dry. Respiratory: No deficits noted. Airway is patent Trachea midline Respiratory effort is even, unlabored. 20:07 Reassessment: Pt is AAOX4, ambulatory independently, well appearing, NAD, respirations jh5 even and unlabored, color appropriate for ethnicity, skin warm and dry. Pt presents to at this time for HCG recheck for follow up from previous visit 48 hours ago. Pt denies pain at this time. Vital Signs: 19:54 BP 132 / 81; Pulse 87; Resp 16; Temp 98.8; Pulse Ox 99% ; iw ED Course: 19:25 Patient arrived in ED. ja2 19:36 Hattie Beck FNP-C [facility]. kb 19:36 Amie Waters MD is Attending Physician. kb 19:55 Triage completed. iw 20:29 Arm band placed on right wrist. jh5 20:29 No provider procedures requiring assistance completed. Patient did not have IV access jh5 during this emergency room visit. 20:30 Patient has correct armband on for positive identification. Bed in low position. Side jh5 rails up X 1. Administered Medications: No medications were administered Outcome: 20:28 Discharge ordered by MD. kb 20:29 Discharged to home ambulatory. jh5 20:29 Condition: good 20:29 Discharge instructions given to patient, significant other. 20:41 Patient left the ED. 5 Signatures: Hattie Beck FNP-C FNP-Ckb Williams, Irene, RN RN Colleen Scott [facility] Colleen Pena RN RN 5
--- NOTE | 2021-08-17 20:28 | EDPHYS ---
Physician Documentation [facility] Name: Veda Miller Age: 20 yrs Sex: Female : 2000 Arrival Date: 08/17/2021 Time: 19:25 Bed Treatment Private MD: ED Physician Amie Waters HPI: 08/17 20:35 This 20 yrs old Black Female presents to ER via Ambulatory with complaints of kb RECHECKING HCG HORMONES. 20:35 Pt states she was seen here 2 days ago for abd cramping and had just found out she was kb . Pt was told to return today for repeat Hcg. States cramps are better. Denies vaginal bleeding. Onset: The symptoms/episode began/occurred 3 day(s) ago. Severity of symptoms: At their worst the symptoms were mild in the emergency department the symptoms have resolved. The patient has not experienced similar symptoms in the past. The patient has not recently seen a physician. 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 - Social history:: Smoking status: Patient denies any tobacco usage or history of. ROS: 20:34 Constitutional: Negative for fever, chills, and weight loss. kb 20:34 All other systems are negative. Exam: 20:34 Constitutional: This is a well developed, well nourished patient who is awake, alert, kb and in no acute distress. Head/Face: Normocephalic, atraumatic. ENT: Moist Mucous membranes Respiratory: Respirations even and unlabored. No increased work of breathing, no retractions or nasal flaring. Abdomen/GI: Soft, non-tender. No distention Skin: Warm, dry with normal turgor. Normal color. MS/ Extremity: Pulses equal, no cyanosis. Neurovascular intact. Full, normal range of motion. Neuro: Awake and alert, GCS 15, oriented to person, place, time, and situation. Moves all extremities. Normal gait. Psych: Awake, alert, with orientation to person, place and time. Behavior, mood, and affect are within normal limits. Vital Signs: 19:54 BP 132 / 81; Pulse 87; Resp 16; Temp 98.8; Pulse Ox 99% ; iw MDM: 19:36 Patient medically screened. kb 20:27 Data reviewed: vital signs, nurses notes. Data interpreted: Pulse oximetry: on room air kb is 99 %. Interpretation: normal. Counseling: I had a detailed discussion with the patient and/or guardian regarding: the historical points, exam findings, and any diagnostic results supporting the discharge/admit diagnosis, lab results, the need for outpatient follow up, an OB/Gyne specialist, to return to the emergency department if symptoms worsen or persist or if there are any questions or concerns that arise at home. 08/17 19:36 Order name: HCG-Quantitative; Complete Time: 20:23 kb Administered Medications: No medications were administered Disposition: 23:06 Co-signature as Attending Physician, Amie Waters MD I agree with the assessment ma2 and plan of care. 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 I agree with assessment and care plan and confirm the diagnosis (es) above. Disposition Summary: 08/17/21 20:28 Discharge Ordered Location: Home kb Condition: Stable kb Diagnosis - Complete or unspecified spontaneous without complication kb Followup: kb - With: Emergency Department - When: As needed - Reason: Worsening of condition Followup: kb - With: Private Physician - When: 2 - 3 days - Reason: Recheck today's complaints, Continuance of care, Re-evaluation by your physician Discharge Instructions: - Discharge Summary Sheet kb - Miscarriage, [id number] kb Forms: - Medication Reconciliation Form kb - Thank You Letter kb - Antibiotic Education kb - Prescription Opioid Use kb Signatures: Dispatcher [employer] Hattie Knutson, NERIS-C SCAFFOLD SETTER-Anne Banks, RN RN Amie Arenas MD MD ma2 Colleen Pena, RN RN jh5
[2021-08-17 22:06] VITALS: BP 132/81; TEMP 98.8; O2SAT 99
--- OUTSIDE RECORDS SUMMARY | 2021-08-29 06:54 | XMS REPORT | Continuity of Care Document ---
:2000 Author Organization [facility] t Address [address] [place] [address] Care Team Providers Name Role Phone ISABELLA Primary Care Physician Unavailable Naman DELEON Attending Clinician Unavailable Problems This patient has no known problems. Allergies, Adverse Reactions, Alerts Allergy Allergy Status Severity Reaction(s) Onset Inactive Treating Comm ents Source Name Type Date Date Clinician NO KNOWN Drug Active [facility] Medications This patient has no known medications. Procedures This patient has no known procedures. Encounters Start End Encounter Admission Attending Care Care Encounter Source Date/Time Date/Time Type Type Clinicians Facility Department ID 2021-08-31 2021-08-31 Outpatient [facility] [id number] [facility] 10:15:00 10:15:[id number] [facility] Results This patient has no known results.
== END 2021-08-17 20:41 | disposition home or self-care (01) ==
LOC: ER 19:20
DX: O03.9 Complete or unspecified spontaneous abortion without complication (principal); Z88.1 Allergy status to other antibiotic agents
CPT/HCPCS: 36415; 84702; 99281

== ENCOUNTER 2023-04-19 09:46 | Emergency (ER) | payer OTHER ==
--- OUTSIDE RECORDS SUMMARY | 2023-04-19 09:52 | XMS REPORT | Continuity of Care Document ---
:2000 Author Organization [facility] t Address [address] [facility]. [address] [place] [address] Care Team Providers Name Role Phone No, Pcp [facility] Primary Care Physician Unavailable ERICK GASPAR Attending Clinician Unavailable Erick Gaspar MD Attending Clinician Doctor Unassigned, [place] Attending Clinician Unavailable KRYSTAL GARRETT Attending Clinician Unavailable Krystal Garrett NP Attending Clinician DEX JIN Attending Clinician Unavailable Dex Jin PA-C Attending Clinician Ray CASTRO CRNA R Attending Clinician Casper Maldonado MD Attending Clinician López Orr CRNA Attending Clinician Pob, Man[facility] Main Attending Clinician Unavailable Ultrasound, Adc Mfm Attending Clinician Unavailable Jonas Gill MD Attending Clinician JONAS GILL Attending Clinician Unavailable 2, Pea-Mfm Us Room Attending Clinician Unavailable Azul Marrufo MD, [place] Attending Clinician [phone] SUJATHA RIVERA Attending Clinician Unavailable Cheyenne Corral RN Attending Clinician Unavailable 2, Adc Lab Attending Clinician Unavailable Ultrasound, Ang-Mfm Attending Clinician Unavailable Ernie Dawson MD Attending Clinician ERNIE DAWSON Attending Clinician Unavailable Lincoln Sanders Attending Clinician Unavailable TULIO ENGLAND Attending Clinician Unavailable CHASITY, ERICK LOJA Admitting Clinician Unavailable Erick Gaspar MD Admitting Clinician Physician, No Primary or Family Admitting Clinician Unavaila ble Payers Payer Name Policy Type Policy Number Effective Date Expiration Date [facility] [id number] 2022 [facility] MEDICAID 00:00:00 MEDICAID OF [place] [id number] 2021 00:00:00 Problems Condition Condition Condition Status Onset Resolution Last Treating Co mments Source Name Details Category Date Date Treatment Clinician Date 39 weeks 39 weeks Disease Active 2021-10 Unive rs gestation gestation 0-31 ity of of of 00:00: [place] 00 [facility] Encounter Encounter Disease Active 2021-10 Uni vers for for 0-31 ity of elective elective 00:00: [place] induction induction 00 [facility] of labor of labor [place] Gestationa Gestationa Disease Active 2021-10 U nivers l l 0-31 ity of hypertensi hypertensi 00:00: [place] on, third on, third 00 [facility] trimester trimester Bran ch Anemia, Anemia, Disease Active 2021-10 Univers antepartum antepartum 0-31 it y of , third , third 00:00: [place] trimester trimester 00 [facility] Liveborn Liveborn Disease Active 2021-10 Unive rs infant, of , of 0-31 it y of [place] , , 00 [place] dical born in born in [facility] hospital by by delivery delivery Disease Active Univers uterine uterine 9-02 ity of contractio contractio 00:00: [place] 00 Medical third third [place] trimester, trimester, antepartum antepartum 31 weeks 31 weeks Disease Active Unive rs gestation gestation 9-02 ity of of of 00:00: [place] 00 [facility] Branch Acute Acute Disease Active Univers right-side right-side - it y of d low back d low back 00:00: [place] pain pain 00 Medical without without Branch sciatica sciatica 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 ICD10 Diagnosis Term [employer] Utility Allergies, Adverse Reactions, Alerts Allergy Allergy Status Severity Reaction(s) Onset Inactive Treating Comm ents Source Name Type Date Date Clinician PENICILL Drug Active Hives Univers INS Class 3-15 ity of 00:00: [place] 00 Medical Branch Penicill Propensi Active Hives Univer s ins ty to 3-15 ity of adverse 00:00: [place] reaction 00 Medical s Branch Penicill Propensi Active Hives Univer s ins ty to 3-15 ity of adverse 00:00: [place] reaction 00 Medical s Branch Penicill Propensi Active Hives Univer s ins ty to 3-15 ity of adverse 00:00: [place] reaction 00 Medical s Branch Penicill DA Active U [facility]ES [facility] [place] NO KNOWN Drug Active Univers ALLERGIE Class ity of S [facility] NO KNOWN Allergy Active [facility] Family History Family Member Diagnosis Comments Start Date Stop Date Source Natural mother Hypertension [facility] Social History Social Habit Start Date Stop Date Quantity Comments Source ASSERTION 2021-11-26 University of 00:00:00 [facility] History of Passive smoker University of tobacco use [facility] Exposure to 2022-12-28 2023-01-07 Not sure University SARS-CoV-2 00:00:00 11:32:00 [facility] (event) [place] Alcohol intake 2023-01-02 2023-01-02 Ex-drinker DIEGO Painting es 00:00:00 00:00:00 (finding) [facility] Tobacco use and 2022-08-16 2022-08-16 Smokeless tobacco Un iversity of exposure 00:00:00 00:00:00 non-user [facility] Sex Assigned At 2000 2000 [place] Andrades 00:00:00 00:00:00 [facility] Smoking Status Start Date Stop Date Source Never smoked tobacco [facility] Medications Ordered Filled Start Stop Current Ordering Indication Dosage Frequency Signature Comments Components Source Medication Medication Date Date Medication? Clinician (SIG) Name Name rupaACYcldennys 2022- No 1 tablet U nivers r 1 gram 6-28 06-28 ity of tablet 11:04: 00:00 [place] 17 :00 [facility] valACYclovi 2022- No 1 tablet U nivers r 1 gram 6-28 06-28 ity of tablet 11:04: 00:00 [place] 17 :00 [facility] valACYclovi Yes [id number] 1g Take 1 Univers r 1 gram 6-28 tablet by ity of tablet 00:00: mouth in [place] 00 the Medical morning. [place] valACYclovi Yes [id number] 1g Take 1 Univers r 1 gram 6-28 tablet by ity of tablet 00:00: mouth in [place] 00 the Medical morning. [place] valACYclovi Yes [id number] 1g Take 1 Univers r 1 gram 6-28 tablet by ity of tablet 00:00: mouth in [place] 00 the Medical morning. [place] valACYclovi Yes 1 tablet Un ruth r 1 gram 3-24 ity of tablet 14:06: [address] valACYclovi Yes 1 tablet Un ruth r 1 gram 3-24 ity of tablet 14:06: [address] maalox-lido Yes [id number] 10mL Take 10 mL Univers dania 2% 3-24 by mouth 4 ity o f viscous 1:1 00:00: (four[place] Susp 00 times Medical suspension daily as Branc h needed (pain with swallowing ). maalox-lido Yes [id number] 10mL Take 10 mL Univers dania 2% 24 by mouth 4 ity o f viscous 1:1 00:00: (four) [place] Susp 00 times Medical suspension daily as Branc h needed (pain with swallowing ). maalox-lido 2022- No [id number] 10mL Take 10 mL Univers dania 2% 01-07 by mouth 4 ity of viscous 1:1 00:00: 00:00 (four) [place] Susp 00 :00 times Medical suspension daily as Branc h needed (pain with swallowing ). maalox-lido No [id number] 10mL Take 10 mL Univers dania 2% 01-07 by mouth 4 ity of viscous 1:1 00:00: 00:00 (four) [place] Susp 00 :00 times Medical suspension daily as Branc h needed (pain with swallowing ). ibuprofen 2021-10 Yes 600mg 600 mg, Univ ers (IBU) 02 Oral, Q6H ity of tablet 600 17:00: ABX, First [place] mg 00 dose on Medical Tue [place] 08/18/22 at 1200, Until Discontinu ed, Routine ibuprofen 2021-10 Yes 600mg 600 mg, Univ ers (IBU) 02 Oral, Q6H ity of tablet 600 17:00: ABX, First [place] mg 00 dose on [facility] Tue [place] 08/18/22 at 1200, Until Discontinu ed, Routine ketorolac 2021-10 No 30mg 30 mg, Unive rs (TORADOL) 10-17 Slow IV ity of injection 17:00: 16:59 [place], Q6H [place] 30 mg 00 :00 ABX, 4 Medical doses, Branch First dose on Tue08/17/22 at 1200, Last dose on Tue08/18/22 at 0600, Routine ketorolac 2021-10- No 30mg 30 mg, Unive rs (TORADOL) 10-17 Slow IV ity of injection 17:00: 16:59 [place], Q6H [place] 30 mg 00 :00 ABX, 4 Medical doses, Branch First dose on Tue08/17/22 at 1200, Last dose on Tue08/18/22 at 0600, Routine PNV 2021-10- No Take by [facility] no.95/srinivas 10-17 mouth. ity o f 11:58: 00:00 [place] fum/folic 43 :00 Medical ac Branch ( ORAL) PNV 2021-10- No Take by [facility] no.95/srinivas 10-17 mouth. ity o f 11:58: 00:00 [place] fum/folic 43 :00 Medical ac Branch ( ORAL) acetaminoph 2021-10 Yes 650mg 650 mg, Un ruth en 10-17 Oral, Q6H ity of (TYLENOL) 11:00: ABX, First [place] tablet 650 00 dose on Medica l mg Tue Branch 08/17/22 at 0600, Until Discontinu ed, Routine HYDROcodone 2021-10 Yes 1{tbl} 1 tablet, Univers -acetaminop 10-17 Oral, ity of hen (NORCO 11:00: Q6HPRN, [place] 5) 5-325 mg 00 Starting Medi [place] tablet 1 on Tue Branch tablet 08/17/22 at 0600, Until Discontinu ed, Routine, Pain (scale 7-10), Alternate with Ibuprofen acetaminoph 2021-10 Yes 650mg 650 mg, Un ruth en 10-17 Oral, Q6H ity of (TYLENOL) 11:00: ABX, First [place] tablet 650 00 dose on Medica l mg Tue Branch 08/17/22 at 0600, Until Discontinu ed, Routine HYDROcodone 2021-10 Yes 1{tbl} 1 tablet, Univers -acetaminop 01 Oral, ity of hen (NORCO 11:00: Q6HPRN, [place] 5) 5-325 mg 00 Starting Medi vick[place] tablet 1 on Tue Branch tablet 08/17/22 at 0600, Until Discontinu ed, Routine, Pain (scale 7-10), Alternate with Ibuprofen gabapentin 2021-10 Yes 300mg 300 mg, Uni vers (NEURONTIN) 10-17 Oral, TID, it y of capsule 300 01:00: First dose [place] mg 00 on [facility] 08/16/22 Branch at 1999, Until Discontinu ed, Routine gabapentin 2021-10 Yes 300mg 300 mg, Uni vers (NEURONTIN) 1-01 Oral, TID, it y of capsule 300 01:00: First dose [place] mg 00 on [facility] 08/16/22 Branch at 1999, Until Discontinu ed, Routine acetaminoph 2021-10 Yes [id number] 650mg Take 2 Univers en 325 mg 1-01 tablets by ity of tablet 00:00: mouth [place] 00 every 6 Medical (six) Branch hours as needed for Pain (scale 1-3) or Pain (scale 4-6). 2021-10 Yes [id number] 1{tbl} Take 1 U nivers vitamin 1-01 tablet by ity of w/FA tablet 00:00: mouth in [place] 00 the Medical morning. Branch docusate 2021-10 Yes [id number] 200mg Take 2 Un ruth 100 mg 1-01 capsules ity of capsule 00:00: by mouth [place] 00 once daily Medical as needed Branch for Constipati on. ferrous 2021-10 Yes [id number] 325mg Take 1 Uni vers sulfate 325 1-01 tablet by ity of mg (65 mg 00:00: [place] iron) 00 the Medical tablet morning Branch and 1 tablet in the evening. ibuprofen 2021-10 Yes [id number] 600mg Take 1 U nivers 600 mg 1-01 tablet by ity of tablet 00:00: mouth [place] 00 every 6 Medical (six) Branch hours as needed (Pain). Take with food or milk. acetaminoph 2021-10 Yes [id number] 650mg Take 2 Univers en 325 mg 1-01 tablets by ity of tablet 00:00: mouth [place] 00 every 6 Medical (six) Branch hours as needed for Pain (scale 1-3) or Pain (scale 4-6). 2021-10 Yes [id number] 1{tbl} Take 1 U nivers vitamin 1-01 tablet by ity of w/FA tablet 00:00: mouth in [place] 00 the Medical morning. Branch docusate 2021-10 Yes [id number] 200mg Take 2 Un ruth 100 mg 1-01 capsules ity of capsule 00:00: by mouth [place] 00 once daily Medical as needed Branch for Constipati on. ferrous 2021-10 Yes [id number] 325mg Take 1 Uni vers sulfate 325 1-01 tablet by ity of mg (65 mg 00:00: [place] iron) 00 the Medical tablet morning Branch and 1 tablet in the evening. ibuprofen 2021-10 Yes [id number] 600mg Take 1 U nivers 600 mg 1-01 tablet by ity of tablet 00:00: mouth [place] 00 every 6 Medical (six) Branch hours as needed (Pain). Take with food or milk. acetaminoph 2021-10 Yes [id number] 650mg Take 2 Univers en 325 mg 1-01 tablets by ity of tablet 00:00: mouth [place] 00 every 6 Medical (six) Branch hours as needed for Pain (scale 1-3) or Pain (scale 4-6). 2021-10 Yes [id number] 1{tbl} Take 1 U nivers vitamin 1-01 tablet by ity of w/FA tablet 00:00: mouth in [place] 00 the Medical morning. Branch docusate 2021-10 Yes [id number] 200mg Take 2 Un ruth 100 mg 1-01 capsules ity of capsule 00:00: by mouth [place] 00 once daily Medical as needed Branch for Constipati on. ferrous 2021-10 Yes [id number] 325mg Take 1 Uni vers sulfate 325 1-01 tablet by ity of mg (65 mg 00:00: [place] iron) 00 the Medical tablet morning Branch and 1 tablet in the evening. ibuprofen 2021-10 Yes [id number] 600mg Take 1 U nivers 600 mg 1-01 tablet by ity of tablet 00:00: mouth [place] 00 every 6 Medical (six) Branch hours as needed (Pain). Take with food or milk. acetaminoph 2021-10 Yes [id number] 650mg Take 2 Univers en 325 mg 1-01 tablets by ity of tablet 00:00: mouth [place] 00 every 6 Medical (six) Branch hours as needed for Pain (scale 1-3) or Pain (scale 4-6). 2021-10 Yes [id number] 1{tbl} Take 1 U nivers vitamin 1-01 tablet by ity of w/FA tablet 00:00: mouth in [place] 00 the Medical morning. Branch docusate 2021-10 Yes [id number] 200mg Take 2 Un ruth 100 mg 1-01 capsules ity of capsule 00:00: by mouth [place] 00 once daily Medical as needed Branch for Constipati on. ferrous 2021-10 Yes [id number] 325mg Take 1 Uni vers sulfate 325 1-01 tablet by ity of mg (65 mg 00:00: mouth [place] iron) 00 the Medical tablet morning Branch and 1 tablet in the evening. ibuprofen 2021-10 Yes [id number] 600mg Take 1 U nivers 600 mg 1-01 tablet by ity of tablet 00:00: mouth [place] 00 every 6 Medical (six) Branch hours as needed (Pain). Take with food or milk. acetaminoph 2021-10 Yes [id number] 650mg Take 2 Univers en 325 mg 1-01 tablets by ity of tablet 00:00: mouth [place] 00 every 6 Medical (six) Branch hours as needed for Pain (scale 1-3) or Pain (scale 4-6). 2021-10 Yes [id number] 1{tbl} Take 1 U nivers vitamin 1-01 tablet by ity of w/FA tablet 00:00: mouth in [place] 00 the Medical morning. Branch docusate 2021-10 Yes [id number] 200mg Take 2 Un ruth 100 mg 1-01 capsules ity of capsule 00:00: by mouth [place] 00 once daily Medical as needed Branch for Constipati on. ferrous 2021-10 Yes [id number] 325mg Take 1 Uni vers sulfate 325 1-01 tablet by ity of mg (65 mg 00:00: [place] iron[place] 00 the Medical tablet morning Branch and 1 tablet in the evening. ibuprofen 2021-10 Yes [id number] 600mg Take 1 U nivers 600 mg 1-01 tablet by ity of tablet 00:00: mouth [place] 00 every 6 Medical (six) Branch hours as needed (Pain). Take with food or milk. acetaminoph 2021-10 Yes [id number] 650mg Take 2 Univers en 325 mg 1-01 tablets by ity of tablet 00:00: mouth [place] 00 every 6 Medical (six) Branch hours as needed for Pain (scale 1-3) or Pain (scale 4-6). 2021-10 Yes [id number] 1{tbl} Take 1 U nivers vitamin 1-01 tablet by ity of w/FA tablet 00:00: mouth in [place] 00 the Medical morning. Branch docusate 2021-10 Yes [id number] 200mg Take 2 Un ruth 100 mg 1-01 capsules ity of capsule 00:00: by mouth [place] 00 once daily Medical as needed Branch for Constipati on. ferrous 2021-10 Yes [id number] 325mg Take 1 Uni vers sulfate 325 1-01 tablet by ity of mg (65 mg 00:00: [place] iron[place] 00 the Medical tablet morning Branch and 1 tablet in the evening. ibuprofen 2021-10 Yes [id number] 600mg Take 1 U nivers 600 mg 1-01 tablet by ity of tablet 00:00: mouth [place] 00 every 6 Medical (six) Branch hours as needed (Pain). Take with food or milk. acetaminoph 2021-10 Yes [id number] 650mg Take 2 Univers en 325 mg 1-01 tablets by ity of tablet 00:00: mouth [place] 00 every 6 Medical (six) Branch hours as needed for Pain (scale 1-3) or Pain (scale 4-6). 2021-10 Yes [id number] 1{tbl} Take 1 U nivers vitamin 1-01 tablet by ity of w/FA tablet 00:00: mouth in [place] 00 the Medical morning. Branch docusate 2021-10 Yes [id number] 200mg Take 2 Un ruth 100 mg 1-01 capsules ity of capsule 00:00: by mouth [place] 00 once daily Medical as needed Branch for Constipati on. ferrous 2021-10 Yes [id number] 325mg Take 1 Uni vers sulfate 325 1-01 tablet by ity of mg (65 mg 00:00: [place] iron) 00 the Medical tablet morning Branch and 1 tablet in the evening. ibuprofen 2021-10 Yes [id number] 600mg Take 1 U nivers 600 mg 1-01 tablet by ity of tablet 00:00: mouth [place] 00 every 6 Medical (six) Branch hours as needed (Pain). Take with food or milk. acetaminoph 2021-10 Yes [id number] 650mg Take 2 Univers en 325 mg 1-01 tablets by ity of tablet 00:00: mouth [place] 00 every 6 Medical (six) Branch hours as needed for Pain (scale 1-3) or Pain (scale 4-6). 2021-10 Yes [id number] 1{tbl} Take 1 U nivers vitamin 1-01 tablet by ity of w/FA tablet 00:00: mouth in [place] 00 the Medical morning. Branch docusate 2021-10 Yes [id number] 200mg Take 2 Un ruth 100 mg 1-01 capsules ity of capsule 00:00: by mouth [place] 00 once daily Medical as needed Branch for Constipati on. ferrous 2021-10 Yes [id number] 325mg Take 1 Uni vers sulfate 325 1-01 tablet by ity of mg (65 mg 00:00: [place] iron[place] 00 the Medical tablet morning Branch and 1 tablet in the evening. ibuprofen 2021-10 Yes [id number] 600mg Take 1 U nivers 600 mg 1-01 tablet by ity of tablet 00:00: mouth [place] 00 every 6 Medical (six) Branch hours as needed (Pain). Take with food or milk. 2021-10 Yes [id number] 1{tbl} Take 1 U nivers vitamin 1-01 tablet by ity of w/FA tablet 00:00: mouth in [place] 00 the Medical morning. Branch ferrous 2021-10 Yes [id number] 325mg Take 1 Uni vers sulfate 325 1-01 tablet by ity of mg (65 mg 00:00: [place] iron) 00 the Medical tablet morning Branch and 1 tablet in the evening. 2021-10 Yes [id number] 1{tbl} Take 1 U nivers vitamin 1-01 tablet by ity of w/FA tablet 00:00: mouth in [place] 00 the Medical morning. Branch ferrous 2021-10 Yes [id number] 325mg Take 1 Uni vers sulfate 325 1-01 tablet by ity of mg (65 mg 00:00: [place] iron) 00 the Medical tablet morning Branch and 1 tablet in the evening. 2021-10 Yes [id number] 1{tbl} Take 1 U nivers vitamin 1-01 tablet by ity of w/FA tablet 00:00: mouth in [place] 00 the Medical morning. Branch ferrous 2021-10 Yes [id number] 325mg Take 1 Uni vers sulfate 325 1-01 tablet by ity of mg (65 mg 00:00: [place] iron) 00 the Medical tablet morning Branch and 1 tablet in the evening. 2021-10 Yes [id number] 1{tbl} Take 1 U nivers vitamin 1-01 tablet by ity of w/FA tablet 00:00: mouth in [place] 00 the Medical morning. Branch ferrous 2021-10 Yes [id number] 325mg Take 1 Uni vers sulfate 325 1-01 tablet by ity of mg (65 mg 00:00: [place] iron[place] 00 the Medical tablet morning Branch and 1 tablet in the evening. 2021-10 Yes [id number] 1{tbl} Take 1 U nivers vitamin 1-01 tablet by ity of w/FA tablet 00:00: mouth in [place] 00 the Medical morning. Branch ferrous 2021-10 Yes [id number] 325mg Take 1 Uni vers sulfate 325 1-01 tablet by ity of mg (65 mg 00:00: mouth [place] iron[place] 00 the Medical tablet morning Branch and 1 tablet in the evening. 2021-10 Yes [id number] 1{tbl} Take 1 U nivers vitamin 1-01 tablet by ity of w/FA tablet 00:00: mouth in [place] 00 the Medical morning. Branch ferrous 2021-10 Yes [id number] 325mg Take 1 Uni vers sulfate 325 1-01 tablet by ity of mg (65 mg 00:00: [place] iron[place] 00 the Medical tablet morning Branch and 1 tablet in the evening. 2021-10- No [id number] 1{tbl} Take 1 Univers vitamin 1-01 06-28 tablet by ity of w/FA tablet 00:00: 00:00 mouth in [place] 00 :00 the Medical morning. Branch ferrous 2021-10- No [id number] 325mg Take 1 Un ruth sulfate 325 1-01 06-28 tablet by it y of mg (65 mg 00:00: 00:00 mouth in [place] iron) 00 :00 the Medical tablet morning Branch and 1 tablet in the evening. 2021-10- No [id number] 1{tbl} Take 1 Univers vitamin 1-01 06-28 tablet by ity of w/FA tablet 00:00: 00:00 mouth in [place] 00 :00 the Medical morning. Branch ferrous 2021-10- No [id number] 325mg Take 1 Un ruth sulfate 325 1-01 06-28 tablet by it y of mg (65 mg 00:00: 00:00 mouth in [place] iron) 00 :00 the Medical tablet morning Branch and 1 tablet in the evening. acetaminoph 2021-10- No [id number] 650mg Take 2 Univers en 325 mg 10-17 tablets by ity of tablet 00:00: 00:00 mouth [place] 00 :00 every 6 Medical (six) Branch hours as needed for Pain (scale 1-3) or Pain (scale 4-6). docusate 2021-10- No [id number] 200mg Take 2 U nivers 100 mg 10-17 capsules ity of capsule 00:00: 00:00 by mouth [place] 00 :00 once daily Medical as needed Branch for Constipati on. ibuprofen 2021-10- No [id number] 600mg Take 1 Univers 600 mg 10-17 tablet by ity of tablet 00:00: 00:00 mouth [place] 00 :00 every 6 Medical (six) Branch hours as needed (Pain). Take with food or milk. HYDROcodone 2021-10 No [id number] 1{tbl} Take 1 U nivers -acetaminop 10-17 tablet by it y of hen 5-325 00:00: 05:59 mouth [place] mg tablet 00 :00 every 6 Medical (six) Branch hours as needed for Pain (scale 7-10) (Alternate with Ibuprofen) for up to 7 days. Indication s: acute pain HYDROcodone 2021-10 No [id number] 1{tbl} Take 1 U nivers -acetaminop 10-17 tablet by it y of hen 5-325 00:00: 05:59 mouth [place] mg tablet 00 :00 every 6 Medical (six) Branch hours as needed for Pain (scale 7-10) (Alternate with Ibuprofen) for up to 7 days. Indication s: acute pain HYDROcodone 2021-10 No [id number] 1{tbl} Take 1 U nivers -acetaminop -08-25 tablet by it y of hen 5-325 00:00: 05:59 mouth [place] mg tablet 00 :00 every 6 Medical (six) Branch hours as needed for Pain (scale 7-10) (Alternate with Ibuprofen) for up to 7 days. Indication s: acute pain HYDROcodone 2021-10 No [id number] 1{tbl} Take 1 U nivers -acetaminop 10-17 tablet by it y of hen 5-325 00:00: 05:59 mouth [place] mg tablet 00 :00 every 6 Medical (six) Branch hours as needed for Pain (scale 7-10) (Alternate with Ibuprofen) for up to 7 days. Indication s: acute pain HYDROcodone 2021-10- No [id number] 1{tbl} Take 1 U nivers -acetaminop 10-17 tablet by it y of hen 5-325 00:00: 05:59 mouth [place] mg tablet 00 :00 every 6 Medical (six) Branch hours as needed for Pain (scale 7-10) (Alternate with Ibuprofen) for up to 7 days. Indication s: acute pain gabapentin 2021-10 No [id number] 300mg Take 1 Univers 300 mg 10-17 capsule by ity of capsule 00:00: 05:59 mouth in [place] 00 :00 the Medical morning Branch and 1 capsule at noon and 1 capsule in the evening. Do all this for 5 days. gabapentin 2021-10 No [id number] 300mg Take 1 Univers 300 mg 10-17 capsule by ity of capsule 00:00: 05:59 mouth in [place] 00 :00 the Medical morning Branch and 1 capsule at noon and 1 capsule in the evening. Do all this for 5 days. gabapentin 2021-10 No [id number] 300mg Take 1 Univers 300 mg 10-17 capsule by ity of capsule 00:00: 05:59 mouth in [place] 00 :00 the Medical morning Branch and 1 capsule at noon and 1 capsule in the evening. Do all this for 5 days. gabapentin 2021-10 No [id number] 300mg Take 1 Univers 300 mg 10-17 capsule by ity of capsule 00:00: 05:59 mouth in [place] 00 :00 the Medical morning Branch and 1 capsule at noon and 1 capsule in the evening. Do all this for 5 days. lactated 2021-10 No 1000mL at 125 Univ ers ringers IV 0-31 11-01 mL/hr, ity of infusion 23:15: 02:35 1,000 mL, [place] 1,000 mL 00 :39 IV Medical Infusion, Branch ONCE, 1 dose, On Tue08/16/22 at 1815, Routine rho(D) 2021-10 Yes 300ug 300 mcg, Univer s immune 0-31 Intramuscu ity of globulin 23:12: lar, ONCE, [place] (RHOGAM) 28 For 1 Medical syringe 300 dose, Branch mcg Conditiona l, Routine rho(D) 2021-10 Yes 300ug 300 mcg, Univer s immune 0-31 Intramuscu ity of globulin 23:12: lar, ONCE, [place] (RHOGAM) 28 For 1 Medical syringe 300 dose, Branch mcg Conditiona l, Routine diphenhydrA 2021-10 Yes 25mg 25 mg, Univ ers MINE 0-31 Slow IV ity of (BENADRYL) 23:12: Push, [place] injection 21 Q6HPRN, Medical 25 mg Starting Branch on Tue08/16/22 at 1812, Until Discontinu ed, Routine, Itching diphenhydrA 2021-10 Yes 25mg 25 mg, Univ ers MINE 0-31 Oral, ity of (BENADRYL) 23:12: Q6HPRN, [place] tablet 25 21 Starting Medica l mg on Tue08/16/22 at 1812, Until Discontinu ed, Routine, Sleep, Itching ondansetron 2021-10 Yes 4mg 4 mg, Slow Univers (ZOFRAN 0-31 IV Push, ity of (PF)) 23:12: Q8HPRN, [place] injection 4 21 Starting Medi vickie mg on Tue08/16/22 at 1812, Until Discontinu ed, Routine, Nausea and Vomiting (N/V) bisacodyL 2021-10 Yes 10mg 10 mg, Univer s (DULCOLAX) 0-31 Rectal, ity of suppository 23:12: QDAILYPRN, [place] 10 mg 21 Starting Medical on Tue08/16/22 at 1812, Until Discontinu ed, Routine, Constipati on simethicone 2021-10 Yes 160mg 160 mg, Un ruth (GAS RELIEF 0-31 Oral, ity of (SIMETHICON 23:12: PC+HSPRN, [place] E)) 21 Starting Medical chewable on Tue tablet 160 08/16/22 mg at 1812, Until Discontinu ed, Routine, Gas docusate 2021-10 Yes 200mg 200 mg, Unive rs (COLACE) 0-31 Oral, ity of capsule 200 23:12: QDAILYPRN, [place] mg 21 Starting Medical on Tue Branch 08/16/22 at 181, Until Discontinu ed, Routine, Constipati on magnesium 2021-10 Yes 30mL 30 mL, Univer s hydroxide 0-31 Oral, ity of (MILK OF 23:12: QDAILYPRN, [place] as MAGNESIA) 21 Starting Medica l 400 mg/5 mL on Tue suspension 08/16/22 30 mL at 181, Until Discontinu ed, Routine, Constipati on diphenhydrA 2021-10 Yes 25mg 25 mg, Univ ers MINE 0-31 Slow IV ity of (BENADRYL) 23:12: Push, [place] injection 21 Q6HPRN, Medical 25 mg Starting Branch on Tue08/16/22 at 181, Until Discontinu ed, Routine, Itching diphenhydrA 2021-10 Yes 25mg 25 mg, Univ ers MINE 0-31 Oral, ity of (BENADRYL) 23:12: Q6HPRN, [place] tablet 25 21 Starting Medica l mg on Tue Branch 08/16/22 at 181, Until Discontinu ed, Routine, Sleep, Itching ondansetron 2021-10 Yes 4mg 4 mg, Slow Univers (ZOFRAN 0-31 IV Push, ity of (PF)) 23:12: Q8HPRN, [place] injection 4 21 Starting Medi vickie mg on Tue08/16/22 at 181, Until Discontinu ed, Routine, Nausea and Vomiting (N/V) bisacodyL 2021-10 Yes 10mg 10 mg, Univer s (DULCOLAX) 0-31 Rectal, ity of suppository 23:12: QDAILYPRN, [place] 10 mg 21 Starting Medical on Tue Branch 08/16/22 at 181, Until Discontinu ed, Routine, Constipati on simethicone 2021-10 Yes 160mg 160 mg, Un rtuh (GAS RELIEF 0-31 Oral, ity of (SIMETHICON 23:12: PC+HSPRN, [place] E)) 21 Starting Medical chewable on Tue tablet 160 08/16/22 mg at 1812, Until Discontinu ed, Routine, Gas docusate 2021-10 Yes 200mg 200 mg, Unive rs (COLACE) 0-31 Oral, ity of capsule 200 23:12: QDAILYPRN, [place] mg 21 Starting Medical on Mon Branch 08/16/22 at 1812, Until Discontinu ed, Routine, Constipati on magnesium 2021-10 Yes 30mL 30 mL, Univer s hydroxide 0-31 Oral, ity of (MILK OF 23:12: QDAILYPRN, [place] MAGNESIA) 21 Starting Medica l 400 mg/5 mL on Mon Branch suspension 08/16/22 30 mL at 1812, Until Discontinu ed, Routine, Constipati on lactated 2021-10 Yes 1000mL at 125 Unive rs ringers IV 0-31 mL/hr, ity of infusion 23:12: 1,000 mL, [place] 1,000 mL 20 IV Medical Infusion, Branch PRN, 1 dose, Starting on Tue08/16/22 at 1812, Until Discontinu ed, Routine lactated 2021-10 Yes 1000mL at 125 Unive rs ringers IV 0-31 mL/hr, ity of infusion 23:12: 1,000 mL, [place] 1,000 mL 20 IV Medical Infusion, Branch PRN, 1 dose, Starting on Tue08/16/22 at 1812, Until Discontinu ed, Routine sodium 2021-10 Yes PRN, Univers chloride 0-31 Starting ity of 0.9 % 22:44: on [facility] irrigation 00 08/16/22 Medic al solution at 1744, Branch Until Discontinu ed, Intra-op sodium 2021-10 Yes PRN, Univers chloride 0-31 Starting ity of 0.9 % 22:44: on [facility] irrigation 00 08/16/22 Medic al solution at 1744, Branch Until Discontinu ed, Intra-op mupirocin 2021-10 Yes Intra-op Univ ers (BACTROBAN 0-31 ity of OINT) 2 % 20:30: [place] skin 00 Medical ointment Branch mupirocin 2021-10 Yes Intra-op Univ ers (BACTROBAN 0-31 ity of OINT) 2 % 20:30: [place] skin 00 Medical ointment Branch morpHINE PF 2021-10- No Epidural, Univers (DURAMORPH- 008-16 ONCE INTRA i ty of PF) 20:20: 20:42 PROCEDURE, [place] injection 00 :43 Starting Medica l on Tue Branch 08/16/22 at 1520, Until Tue08/16/22 at 1542, Routine, Intra-op acetaminoph 2021-10- No IV Unive rs en ADULT 08-16 Infusion, ity o f (OFIRMEV) 20:11: 20:42 Administer [place] injection 00 :43 over 15 Medical Minutes, Branch ONCE INTRA PROCEDURE, Starting on Tue08/16/22 at 1511, Until Tue08/16/22 at 1542, Routine, Intra-op ondansetron 2021-10- No Slow IV Un ruth (ZOFRAN 08-16 Push, ONCE ity o f (PF)) 20:11: 20:42 INTRA [place] injection 00 :43 PROCEDURE, [facility] Starting Branch on Tue08/16/22 at 1511, Until Tue08/16/22 at 1542, Routine, Intra-op LR 1000 mL 2021-10- No IV Univer s + oxytocin 08-16 Infusion, ity of 20 units IV 20:07: 20:42 CONTINUOUS [place] Solution 00 :43 PRN, Medical Starting Branch on Tue08/16/22 at 1507, Until Tue08/16/22 at 1542, GLYNN, Intra-op tobramycin 2021-10- No Buccal, Uni vers (NEBCIN) 08-16 ONCE INTRA ity of injection 19:55: 20:42 PROCEDURE, [place] 00 :43 Starting Medical on [facility] Branch 08/16/22 at 1455, Until Tue08/16/22 at 1542, GLYNN, Intra-op lidocaine-e 2021-10- No Epidural, Univers pinephrine 08-16 ONCE INTRA it y of (XYLOCAINE 19:45: 20:42 PROCEDURE, [place] W/EPINEPHRI 00 :43 Starting [facility] NE) 2 on [facility] Branch %-1:200,000 08/16/22 injection at 1445, Until Tue08/16/22 at 1542, Routine, Intra-op lactated 2021-10- No IV Univers ringers IV 08-16 Infusion, ity of infusion 19:28: 20:42 CONTINUOUS [place] 00 :[place] PRN, Medical Starting Branch on Tue08/16/22 at 1428, Until Tue08/16/22 at 1542, Routine, Intra-op clindamycin 2021-10- No 900mg 900 mg, IV Univers in 5 % 08-16 Piggyback, ity of dextrose 18:55: 23:12 [facility] (CLEOCIN) 31 :25 HOLDING Medical 900 mg/50 ONCE, Branch mL IV Starting piggyback on Tue RTU 900 mg 08/16/22 at 1355, Until Tue08/16/22 at 1812, Administer over 30 Minutes, 50 mL
Reas on for Anti-Infec tive: Surgical Prophylaxi s
Loya rgical Prophylaxi s: CAREER CENTER ADVISOR
Duration of therapy: within 24 hours of surgery
Restricte d use approved by: CAREER CENTER ADVISOR FACULTY
hull line crew member approving Restricted medication : ERICK GASPAR PNV 2021-10 Yes Take by Univers no.95/srinivas 0-31 mouth. ity of us 15:55: [place] fum/folic 33 [facility] ( ORAL) PNV 2021-10 Yes Take by Univers no.95/srinivas 0-31 mouth. ity of us 15:55: [place] fum/folic 33 [facility] ( ORAL) PIB 2021-10- No Epidural, Univers fentaNYL-ro 08-16 ONCE INTRA i ty of pivacaine 2 13:32: 20:42 PROCEDURE, [place] mcg/mL-0.1 00 :43 Starting Medic al % (PF) in on Tue Branch NS 200 mL 08/16/22 epidural at 0832, infusion Until Tue RTU 08/16/22 at 1542, Routine, Intra-op PIB 2021-10- No Epidural, Univers fentaNYL-ro 008-16 CONTINUOUS i ty of pivacaine 2 13:30: 20:42 PRN, [place] mcg/mL-0.1 00 :43 Starting Medic al % (PF) in on Tue Branch NS 200 mL 08/16/22 epidural at 0830, infusion Until Tue RTU 08/16/22 at 1542, Routine, Intra-op lidocaine-e 2021-10- No Intravenou Univers pinephrine 08-16 s, ONCE ity o f (XYLOCAINE 13:30: 20:42 INTRA [place] W/EPINEPHRI 00 :43 PROCEDURE, Al dical NE) 2 Starting Branch %-1:200,000 on Mon injection 08/16/22 at 0830, Until Tue08/16/22 at 1542, Routine, Intra-op lidocaine 2021-10- No Infiltrati U nivers 1% 08-16 on, ONCE ity of (XYLOCAINE) 13:17: 20:42 INTRA [place] 100 mg/10 00 :43 PROCEDURE, Medi vickie mL (1 %) Starting Branch injection on Tue08/16/22 at 0817, Until Tue08/16/22 at 1542, Routine, Intra-op misoprostol 2021-10- No 25ug 25 mcg, Un ruth (CYTOTEC) 08-16 Vaginal, ity o f quarter-tab 05:15: 23:12 Q4H ABX, [place] let 25 mcg 00 :25 First dose Med ical on Mon Branch 08/16/22 at 0015, Until Discontinu ed, Routine misoprostol 2021-10- No 25ug 25 mcg, Un ruth (CYTOTEC) 08-16 Oral, ity of quarter-tab 05:15: 06:48 ONCE, 1 [place] 25 mcg 00 :00 dose, On Medic al Mon Branch 08/16/22 at 0015, Routine vancomycin 2021-10- No 20mg/kg 1,250 mg Univers 1,250 mg in 08-16 (rounded ity of NaCl 0.9% 05:03: 23:12 from 1,308 [place] (NS) 250 mL 07 :25 mg = 20 Medic al VIAL-MATE mg/kg Branch IV ?65.4 kg), piggyback IV Piggyback, Q8H ABX, 6 doses, First dose on Tue08/16/22 at 0015, Last dose on Tue08/17/22 at 1615, Administer over 90 Minutes, 250 mL
Reas on for Anti-Infec tive: Documented Infection< br>Documen nick Infection Site: Pelvic
Duration of Therapy: Other (see Comments) proMETHazin 2021-10- No 25mg 25 mg, IV Univers e 08-16 Piggyback, ity of (PHENERGAN) 05:03: 23:12 Q4HPRN, [place] 25 mg in 07 :25 Starting Medical NaCl 0.9% on Tue Branch (NS) 50 mL 08/16/22 IV at 0003, piggyback Until Tue08/16/22 at 181, Routine, Nausea and Vomiting (N/V) FENTanyl PF 2021-10- No 50ug 50 mcg, Un ruth (SUBLIMAZE 08-16 Slow IV ity o f (PF)) 05:03: 23:12 Push, [place] injection 07 :25 Q2HPRN, Medical 50 mcg Starting Branch on Tue08/16/22 at 0003, Until Tue08/16/22 at 1811, Routine, contractio n pain without an epidural and SVE < 8 cm and Cat I strip terbutaline 2021-10- No .25mg 0.25 mg, Univers (BRETHINE) 08-16 Subcutaneo it y of injection 05:03: 23:12 us, PRN, [place] 0.25 mg 07 :25 Starting Medical on Tue Branch 08/16/22 at 0003, Until Tue08/16/22 at 1811, Routine, bradycardi a > 3 min or Cat III strip lactated 2021-10- No 500mL at 999 Unive rs ringers IV 0- mL/hr, 500 it y of infusion 05:03: 23:12 mL, IV [place] 500 mL 07 :25 Infusion, Medical PRN - SEE Branch INSTRUCTIO NS, Starting on Tue08/16/22 at 0003, Until Tue08/16/22 at 1811, Routine D5W-LR IV 2021-10- No 1000mL at 1-125 U nivers infusion - mL/hr, IV ity o f 1,000 mL 05:03: 23:12 Infusion, [place] 07 :25 TITRATE, Medical Starting Branch on Tue08/16/22 at 0003, Until Tue08/16/22 at 181, Routine acyclovir 2021-10- No [id number] 400mg Take 1 Univers 400 mg 0-12 11-03 tablet by ity of tablet 00:00: 04:59 mouth in [place] 00 :00 the Medical morning Branch and 1 tablet at noon and 1 tablet in the evening. Do all this for 21 days. acyclovir 2021-10- No [id number] 400mg Take 1 Univers 400 mg 0-12 11-03 tablet by ity of tablet 00:00: 04:59 mouth in [place] 00 :00 the Medical morning Branch and 1 tablet at noon and 1 tablet in the evening. Do all this for 21 days. acyclovir 2021-10- No [id number] 400mg Take 1 Univers 400 mg 0-12 11-03 tablet by ity of tablet 00:00: 04:59 mouth in [place] 00 :00 the [facility] morning [place] and 1 tablet at noon and 1 tablet in the evening. Do all this for 21 days. acyclovir 2021-10- No [id number] 400mg Take 1 Univers 400 mg 0-12 11-03 tablet by ity of tablet 00:00: 04:59 mouth in [place] 00 :00 the [facility] morning Branch and 1 tablet at noon and 1 tablet in the evening. Do all this for 21 days. acyclovir 2021-10- No [id number] 400mg Take 1 Univers 400 mg 0-12 11-03 tablet by ity of tablet 00:00: 04:59 mouth in [place] 00 :00 the [facility] morning [place] and 1 tablet at noon and 1 tablet in the evening. Do all this for 21 days. acyclovir 2021-10- No [id number] 400mg Take 1 Univers 400 mg 0-12 11-03 tablet by ity of tablet 00:00: 04:59 mouth in [place] 00 :00 the Medical morning Branch and 1 tablet at noon and 1 tablet in the evening. Do all this for 21 days. acyclovir 2021-10- No [id number] 400mg Take 1 Univers 400 mg 0-12 11-03 tablet by ity of tablet 00:00: 04:59 mouth in [place] 00 :00 the Medical morning [place] and 1 tablet at noon and 1 tablet in the evening. Do all this for 21 days. acyclovir 2021-10- No [id number] 400mg Take 1 Univers 400 mg 0-12 - tablet by ity of tablet 00:00: 04:59 mouth in [place] 00 :00 the Medical morning Branch and 1 tablet at noon and 1 tablet in the evening. Do all this for 21 days. acyclovir 2021-10- No [id number] 400mg Take 1 Univers 400 mg 0-12 - tablet by ity of tablet 00:00: 04:59 mouth in [place] 00 :00 the Medical morning Branch and 1 tablet at noon and 1 tablet in the evening. Do all this for 21 days. acyclovir 2021-10- No [id number] 400mg Take 1 Univers 400 mg 0-12 - tablet by ity of tablet 00:00: 04:59 mouth in [place] 00 :00 the Medical morning [place] and 1 tablet at noon and 1 tablet in the evening. Do all this for 21 days. acyclovir 2021-10- No [id number] 400mg Take 1 Univers 400 mg 0-08-19 tablet by ity of tablet 00:00: 04:59 mouth in [place] 00 :00 the [facility] morning [place] and 1 tablet at noon and 1 tablet in the evening. Do all this for 21 days. acyclovir 2021-10- No [id number] 400mg Take 1 Univers 400 mg 0-12 08-19 tablet by ity of tablet 00:00: 04:59 mouth in [place] 00 :00 the Medical morning Branch and 1 tablet at noon and 1 tablet in the evening. Do all this for 21 days. acyclovir 2021-10- No [id number] 400mg Take 1 Univers 400 mg 0-12 08-19 tablet by ity of tablet 00:00: 04:59 mouth in [place] 00 :00 the Medical morning [place] and 1 tablet at noon and 1 tablet in the evening. Do all this for 21 days. acyclovir 2021-10- No [id number] 400mg Take 1 Univers 400 mg 0-12 08-17 tablet by ity of tablet 00:00: 00:00 mouth in [place] 00 :00 the Medical morning [place] and 1 tablet at noon and 1 tablet in the evening. Do all this for 21 days. acyclovir 2021-10- No [id number] 400mg Take 1 Univers 400 mg 0-12 11- tablet by ity of tablet 00:00: 00:00 mouth in [place] 00 :00 the Medical morning Branch and 1 tablet at noon and 1 tablet in the evening. Do all this for 21 days. PNV 2021-0 Yes Take by Univers no.95/srinivas 9-02 mouth. ity of us 07:45: [place] fum/folic 38 Medical ac Branch ( ORAL) PNV 2021-0 Yes Take by Univers no.95/srinivas 9-02 mouth. ity of us 07:45: [place] fum/folic 38 Medical ac Branch ( ORAL) PNV 2021-0 Yes Take by Univers no.95/srinivas 9-02 mouth. ity of us 07:45: [place] fum/folic 38 Medical ac Branch ( ORAL) PNV 2021-0 Yes Take by Univers no.95/srinivas 9-02 mouth. ity of us 07:45: [place] fum/folic 38 Medical ac Branch ( ORAL) PNV 2021-0 Yes Take by Univers no.95/srinivas 9-02 mouth. ity of us 07:45: [place] fum/folic 38 Medical ac Branch ( ORAL) PNV 2021-0 Yes Take by Univers no.95/srinivas 9-02 mouth. ity of us 07:45: [place] fum/folic 38 Medical ac Branch ( ORAL) PNV 2021-0 Yes Take by Univers no.95/srinivas 9-02 mouth. ity of us 07:45: [place] fum/folic 38 Medical ac Branch ( ORAL) PNV 2021-0 Yes Take by Univers no.95/srinivas 9-02 mouth. ity of us 07:45: [place] fum/folic 38 Medical ac Branch ( ORAL) PNV 2021-0 Yes Take by Univers no.95/srinivas 9-02 mouth. ity of us 07:45: [place] fum/folic 38 Medical ac Branch ( ORAL) PNV 2021-0 Yes Take by Univers no.95/srinivas 9-02 mouth. ity of us 07:45: [place] fum/folic 38 Medical ac Branch ( ORAL) PNV 2021-0 Yes Take by Univers no.95/srinivas 9-02 mouth. ity of us 07:45: [place] fum/folic 38 Medical ac Branch ( ORAL) PNV 2021-0 Yes Take by Univers no.95/srinivas 9-02 mouth. ity of 07:45: [place] fum/folic 38 Medical Branch ( ORAL) PNV Yes Take by Univers no.95/srinivas 06-18 mouth. ity of 07:45: [place] fum/folic 38 Medical ac Branch ( ORAL) PNV Yes Take by Univers no.95/srinivas 06-18 mouth. ity of 07:45: [place] fum/folic 38 Medical Branch ( ORAL) PNV Yes Take by Univers no.95/srinivas 06-18 mouth. ity of 07:45: [place] fum/folic 38 Medical Branch ( ORAL) PNV Yes Take by Univers no.95/sriinvas 06-18 mouth. ity of 07:45: [place] fum/folic Medical Branch ( ORAL) terbutaline 2021- No .25mg 0.25 mg, Univers (BRETHINE) 06-18 Subcutaneo it y of injection 05:45: 05:42 [place], ONCE, [place] 0.25 mg 00 :00 1 dose, On Medica l Tue06/18/22 Branch at 0045, Routine D5W-LR IV Yes 1000mL at 200 Univ ers infusion 06-18 mL/hr, IV ity of 1,000 mL 05:00: Infusion, [place] 00 CONTINUOUS Medical , Starting Branch on Tue06/18/22 at 0000, Until Discontinu ed, Routine NaCl 0.9% 2021- No 1000mL at 999 Uni vers (NS) IV 06-18 mL/hr, IV ity of infusion 04:45: 05:06 Infusion, [place] 1,000 mL 00 :00 ONCE, 1 Medical dose, On Branch Tue06/17/22 at 2345, Routine FENTanyl PF 2021- No 50ug 50 mcg, Un ruth (SUBLIMAZE 06-18 Slow IV ity o f (PF)) 04:30: 04:26 Push, [place] injection 00 :00 ONCE, 1 Medical 50 mcg dose, On Branch Tue06/17/22 at 2330, Routine proMETHazin Yes 25mg 25 mg, IV U nivers e 06-18 Piggyback, ity of (PHENERGAN) 04:15: Q4HPRN, [place] 25 mg in 19 Starting Medical NaCl 0.9% on [place] Branch (NS) 50 mL 06/17/22 at IV 2315, piggyback Until Discontinu ed, Routine, Nausea and Vomiting (N/V) terbutaline 202- No .25mg 0.25 mg, Univers (BRETHINE) 06-18 Subcutaneo it y of injection 04:00: 03:56 [place], ONCE, [place] 0.25 mg 00 :00 1 dose, On Medica l [place] 06/17/22 Branch at 2300, Routine No known No No known Unive rs medications 06-16 medication it y of 10:28: s [place] 03 Medical Branch fluconazole 0 Yes [id number] 200mg Take 1 Univers (DIFLUCAN) 8-07 tablet by ity of 200 mg 00:00: mouth in [place] tablet 00 the Medical morning. Branch fluconazole Yes [id number] 200mg Take 1 Univers (DIFLUCAN) 8-07 tablet by ity of 200 mg 00:00: mouth in [place] tablet 00 the Medical morning. Branch fluconazole Yes [id number] 200mg Take 1 Univers (DIFLUCAN) 8-07 tablet by ity of 200 mg 00:00: mouth in [place] tablet 00 the Medical morning. Branch fluconazole Yes [id number] 200mg Take 1 Univers (DIFLUCAN) 8-07 tablet by ity of 200 mg 00:00: mouth in [place] tablet 00 the Medical morning. Branch fluconazole 0 Yes [id number] 200mg Take 1 Univers (DIFLUCAN) 8-07 tablet by ity of 200 mg 00:00: mouth in [place] tablet 00 the Medical morning. Branch fluconazole 0 Yes [id number] 200mg Take 1 Univers (DIFLUCAN) 8-07 tablet by ity of 200 mg 00:00: mouth in [place] tablet 00 the Medical morning. Branch fluconazole Yes [id number] 200mg Take 1 Univers (DIFLUCAN) 8-07 tablet by ity of 200 mg 00:00: mouth in [place] tablet 00 the Medical morning. Branch fluconazole Yes [id number] 200mg Take 1 Univers (DIFLUCAN) 8-07 tablet by ity of 200 mg 00:00: mouth in [place] tablet 00 the Medical morning. Branch fluconazole 2022-0 Yes [id number] 200mg Take 1 Univers (DIFLUCAN) 8-07 tablet by ity of 200 mg 00:00: mouth in [place] tablet 00 the Medical morning. Branch fluconazole 2022-0 Yes [id number] 200mg Take 1 Univers (DIFLUCAN) 8-07 tablet by ity of 200 mg 00:00: mouth in [place] tablet 00 the Medical morning. Branch fluconazole 2022-0 Yes [id number] 200mg Take 1 Univers (DIFLUCAN) 8-07 tablet by ity of 200 mg 00:00: mouth in [place] tablet 00 the Medical morning. Branch fluconazole 2022-0 Yes [id number] 200mg Take 1 Univers (DIFLUCAN) 8-07 tablet by ity of 200 mg 00:00: mouth in [place] tablet 00 the Medical morning. Branch fluconazole 2-0 Yes [id number] 200mg Take 1 Univers (DIFLUCAN) 8-07 tablet by ity of 200 mg 00:00: mouth in [place] tablet 00 the Medical morning. Branch fluconazole 2-0 Yes [id number] 200mg Take 1 Univers (DIFLUCAN) 8-07 tablet by ity of 200 mg 00:00: mouth in [place] tablet 00 the Medical morning. Branch fluconazole 2-0 Yes [id number] 200mg Take 1 Univers (DIFLUCAN) 8-07 tablet by ity of 200 mg 00:00: mouth in [place] tablet 00 the Medical morning. Branch fluconazole 2022-0 Yes [id number] 200mg Take 1 Univers (DIFLUCAN) 8-07 tablet by ity of 200 mg 00:00: mouth in [place] tablet 00 the Medical morning. Branch fluconazole 2022-0 Yes [id number] 200mg Take 1 Univers (DIFLUCAN) 8-07 tablet by ity of 200 mg 00:00: mouth in [place] tablet 00 the Medical morning. Branch fluconazole 2022-0 Yes [id number] 200mg Take 1 Univers (DIFLUCAN) 8-07 tablet by ity of 200 mg 00:00: mouth in [place] tablet 00 the Medical morning. Branch fluconazole 2022-0 Yes [id number] 200mg Take 1 Univers (DIFLUCAN) 8-07 tablet by ity of 200 mg 00:00: mouth in [place] tablet 00 the Medical morning. Branch fluconazole 2021-0 Yes [id number] 200mg Take 1 Univers (DIFLUCAN) 8- tablet by ity of 200 mg 00:00: mouth in [place] tablet 00 the Medical morning. Branch fluconazole 2021-0 Yes [id number] 200mg Take 1 Univers (DIFLUCAN) 8- tablet by ity of 200 mg 00:00: mouth in [place] tablet 00 the Medical morning. Branch fluconazole 2021-0 Yes [id number] 200mg Take 1 Univers (DIFLUCAN) 8 tablet by ity of 200 mg 00:00: mouth in [place] tablet 00 the Medical morning. Branch fluconazole 2021-0 202- No [id number] 200mg Take 1 Univers (DIFLUCAN) 05-23 tablet by ity of 200 mg 00:00: 00:00 mouth in [place] tablet 00 :00 the Medical morning. Branch fluconazole 2021-0 2021- No [id number] 200mg Take 1 Univers (DIFLUCAN) 05-23 tablet by ity of 200 mg 00:00: 00:00 mouth in [place] tablet 00 :00 the Medical morning. Branch PNV 2021-0 Yes Take by Univers no.95/srinivas 8-03 mouth. ity of us 13:16: [place] fum/folic 27 Medical ac Branch ( ORAL) PNV 2021-0 Yes Take by Univers no.95/sriniavs 8-03 mouth. ity of us 13:16: [place] fum/folic 27 Medical ac Branch ( ORAL) PNV 2021-0 Yes Take by Univers no.95/srinivas 8-03 mouth. ity of us 13:16: [place] fum/folic 27 Medical ac Branch ( ORAL) PNV 2021-0 Yes Take by Univers no.95/srinivas 8-03 mouth. ity of us 13:16: [place] fum/folic 27 Medical ac Branch ( ORAL) PNV 2021-0 Yes Take by Univers no.95/srinivas 8-03 mouth. ity of us 13:16: [place] fum/folic 27 Medical ac Branch ( ORAL) PNV 2021-0 Yes Take by Univers no.95/srinivas 8-03 mouth. ity of us 13:16: [place] fum/folic 27 Medical ac Branch ( ORAL) No known 2022-0 No Univers medications 7-06 ity of 11:52: [address] No known 2021-0 No No known Unive rs medications 7-06 medication it y of 11:52: s [address] No known 2021-0 No Univers medications 6-07 ity of 15:32: [address] No known 2021-0 No Univers medications 6-07 ity of 15:32: [address] No known 2021-0 No Univers medications 6-07 ity of 14:28: [address] No known 2021-0 No Univers medications 5-11 ity of 15:10: [address] No known 2021-0 No Univers medications 4-12 ity of 10:35: [address] No known 2021-0 No Univers medications 4-12 ity of 10:35: [address] No known 2021-0 No Univers medications 4-12 ity of 10:35: [address] No known 2021-0 No Univers medications 4-12 ity of 10:35: [address] No known 2021-0 No Univers medications 4-12 ity of 10:35: [address] No known 2021-0 No Univers medications 4-12 ity of 10:35: [address] No known 2021-0 No Univers medications 3-15 ity of 14:20: [address] No known 2021-0 No Univers medications 3-15 ity of 14:20: [address] acetaminoph 2021- No 1{tbl} Take 1 U nivers en-codeine 3-15 03-15 tablet by ity of (TYLENOL 14:20: 00:00 mouth [place] #3) 300-30 00 :00 every 4 Medica l mg tablet (four) Branch hours as needed. valACYclovi Yes 500mg Take [address] (VALTREX) 2-27 mg by [facility] MG 11:32: mouth. Medical tablet [facility] valACYclovi 0 Yes 500mg Take [address] (VALTREX) 2-27 [facility] by [facility] MG 11:32: mouth. Medical tablet 59 [facility] valACYclovi 0 Yes 500mg Take [address] (VALTREX) 2-27 [facility] by [facility] MG 11:32: mouth. Medical tablet 59 [facility] acetaminoph 2015-10 Yes 1{tbl} Take 1 Un ruth en-codeine 2-22 tablet by ity of (TYLENOL 10:54: mouth [place] #3) 300-30 38 every 4 Medica l mg tablet (four) Branch hours as needed. azithromyci 2015-10 Yes [id number] 250mg Take 1 Univers n 2-22 tablet by ity of (ZITHROMAX) 00:00: mouth [place] 250 mg 00 SEE-INSTRU Medical tablet CTIONS. Branch Take 500 mg day 1, then 250 mg days 2 to 5. azithromyci 2015-10- No [id number] 250mg Take 1 Univers n 2-22 03-15 tablet by ity of (ZITHROMAX) 00:00: 00:00 [place] 250 mg 00 :00 SEE-INSTRU Medical tablet CTIONS. Branch Take 500 mg day 1, then 250 mg days 2 to 5. Immunizations Ordered Filled Immunization Date Status Comments [facility] e Immunization Name Name [facility] 2022-06-30 Completed University of 00:00:00 [facility] 2022-06-30 Completed University of 00:00:00 [facility] 2022-06-30 Completed University of 00:00:00 [facility] 2022-06-30 Completed University of 00:00:00 [facility] 2022-06-30 Completed University of 00:00:00 [facility] 2022-06-30 Completed University of 00:00:00 [facility] 2022-06-30 Completed University of 00:00:00 [facility] 2022-06-30 Completed University of 00:00:00 [facility] 2022-06-30 Completed University of 00:00:00 [facility] 2022-06-30 Completed University of 00:00:00 [facility] 2022-06-30 Completed University of 00:00:00 [facility] 2022-06-30 Completed University of 00:00:00 [facility] 2022-06-30 Completed University of 00:00:00 [facility] 2022-06-30 Completed University of 00:00:00 [facility] 2022-06-30 Completed University of 00:00:00 [place] [facility] Branch TDAP 2022-06-30 Completed [facility] 00:00:00 [facility] TDAP 2022-06-30 Completed [facility] 00:00:00 [facility] TDAP 2022-06-30 Completed [facility] 00:00:00 [facility] TDAP 2022-06-30 Completed [facility] 00:00:00 [facility] TDAP 2022-06-30 Completed [facility] 00:00:00 [facility] TDAP 2022-06-30 Completed [facility] 00:00:00 [facility] TDAP 2022-06-30 Completed [facility] 00:00:00 [facility] TDAP 2022-06-30 Completed [facility] 00:00:00 [facility] TDAP 2022-06-30 Completed [facility] 00:00:00 [facility] TDAP 2022-06-30 Completed [facility] 00:00:00 [facility] TDAP 2022-06-30 Completed [facility] 00:00:00 [facility] TDAP 2022-06-30 Completed [facility] 00:00:00 [facility] TDAP 2022-06-30 Completed [facility] 00:00:00 [facility] TDAP 2022-06-30 Completed [facility] 00:00:00 [facility] TDAP 2022-06-30 Completed [facility] 00:00:00 [facility] TDAP 2022-06-30 Completed [facility] 00[facility]00:00 [facility] TDAP 2022-06-30 Completed [facility] 00:00:00 [facility] TDAP 2022-06-30 Completed [facility] 00:00:00 [facility] TDAP 2022-06-30 Completed [facility] 00:00:00 [facility] Vital Signs Vital Name Observation Time Observation Value Comments Source Systolic blood 2023-04-13 15:32:00 110 mm[Hg] Univer sity of pressure [facility] Diastolic blood 2023-04-13 15:32:00 78 mm[Hg] Unive rsity of pressure [facility] Heart rate 2023-04-13 15:32:00 74 /min [facility] Body temperature 2023-04-13 15:32:00 36.83 Deloris Univ ersity of [facility] Respiratory rate 2023-04-13 15:32:00 18 /min Univ ersity of [facility] Body height 2023-04-13 15:32:00 152.4 cm [facility]i ty [facility] Body weight 2023-04-13 15:32:00 56.246 kg [facility] BMI 2023-04-13 15:32:00 24.22 kg/m2 Universi ty of [facility] Systolic blood 2023-01-07 16:33:00 121 mm[Hg] Univer sity of pressure [facility] Diastolic blood 2023-01-07 16:33:00 88 mm[Hg] Unive rsity of pressure [facility] Branch Heart rate 2023-01-07 16:33:00 107 /min Universi ty of [facility] Body temperature 2023-01-07 16:33:00 37.72 Deloris Univ ersity of [facility] Branch Respiratory rate 2023-01-07 16:33:00 20 /min Univ ersity of [facility] Body height 2023-01-07 16:33:00 152.4 cm [facility]i [facility] Body weight 2023-01-07 16:33:00 56.7 kg [facility] BMI 2023-01-07 16:33:00 24.41 kg/m2 Universi ty of [facility] Oxygen saturation in 2023-01-07 16:33:00 100 /min University of Arterial blood by [facility] Pulse oximetry Branch Systolic blood 2022-10-05 15:17:00 120 mm[Hg] Univer sity of pressure [facility] Diastolic blood 2022-10-05 15:17:00 86 mm[Hg] Unive rsity of pressure [facility] Branch Heart rate 2022-10-05 15:17:00 67 /min [facility] ty [facility] Body temperature 2022-10-05 15:17:00 36.72 Deloris Univ ersity of [facility] Body height 2022-10-05 15:17:00 152.4 cm [facility] Body weight 2022-10-05 15:17:00 57.335 kg [facility] BMI 2022-10-05 15:17:00 24.69 kg/m2 Universi ty of [facility] Systolic blood 2022-09-07 19:20:00 124 mm[Hg] Univer sity of pressure [facility] Diastolic blood 2022-09-07 19:20:00 79 mm[Hg] Unive rsity of pressure [facility] Heart rate 2022-09-07 19:20:00 87 /min [facility] Body temperature 2022-09-07 19:20:00 36.67 Deloris Univ [facility] of [facility] Body height 2022-09-07 19:20:00 152.4 cm [facility] Body weight 2022-09-07 19:20:00 57.335 kg [facility] BMI 2022-09-07 19:20:00 24.69 kg/m2 [facility] Systolic blood 2022-08-24 22:32:00 134 mm[Hg] Univer sity of pressure [facility] Diastolic blood 2022-08-24 22:32:00 88 mm[Hg] Unive rsity of pressure [facility] Heart rate 2022-08-24 22:32:00 76 /min [facility] Body temperature 2022-08-24 22:32:00 36.78 Deloris [facility] Respiratory rate 2022-08-24 22:32:00 17 /min Univ ersity of [facility] Body height 2022-08-24 22:32:00 152.4 cm [facility] Body weight 2022-08-24 22:32:00 58.786 kg [facility] BMI 2022-08-24 22:32:00 25.31 kg/m2 [facility] Systolic blood 2022-08-17 21:12:00 129 mm[Hg] Univer sity of pressure [facility] Diastolic blood 2022-08-17 21:12:00 77 mm[Hg] Unive rsity of pressure [facility] Heart rate 2022-08-17 21:12:00 72 /min [facility] Body temperature 2022-08-17 21:12:00 36.94 Deloris Univ [facility] Respiratory rate 2022-08-17 21:12:00 18 /min Univ ersity of [facility] Oxygen saturation in 2022-08-17 21:12:00 100 /min University of Arterial blood by [facility] vickie Pulse oximetry Branch Body height 2022-08-16 05:14:00 154.4 cm 5' [facility] Body weight 2022-08-16 05:14:00 66.134 kg 145.8lb [facility] BMI 2022-08-16 05:14:00 27.74 kg/m2 [facility] Heart rate 2022-08-16 21:35:00 80 /min [facility] Oxygen saturation in 2022-08-16 21:35:00 100 /min University of Arterial blood by [facility] Pulse oximetry Branch Systolic blood 2022-08-16 21:31:00 141 mm[Hg] Univer sity of pressure [facility] Diastolic blood 2022-08-16 21:31:00 81 mm[Hg] Unive rsity of pressure [facility] Respiratory rate 2022-08-16 21:01:00 18 /min [facility] Body temperature 2022-08-16 20:43:00 36.83 Deloris [facility] Body height 2022-08-16 05:14:00 154.4 cm 5' [facility] Body weight 2022-08-16 05:14:00 66.134 kg 145.8lb [facility] BMI 2022-08-16 05:14:00 27.74 kg/m2 [facility] Respiratory rate 2022-08-16 20:33:00 21 /min Univ ersity of [facility] Systolic blood 2022-08-11 14:43:00 126 mm[Hg] Univer sity of pressure [facility] Diastolic blood 2022-08-11 14:43:00 85 mm[Hg] Unive rsity of pressure [facility] Heart rate 2022-08-11 14:43:00 79 /min [facility] Body temperature 2022-08-11 14:43:00 36.89 Deloris [facility] Body height 2022-08-11 14:43:00 152.4 cm [facility] Body weight 2022-08-11 14:43:00 65.409 kg [facility] BMI 2022-08-11 14:43:00 28.16 kg/m2 [facility] Systolic blood 2022-08-04 14:46:00 112 mm[Hg] Univer sity of pressure [facility] Diastolic blood 2022-08-04 14:46:00 77 mm[Hg] Unive rsity of pressure [facility] Heart rate 2022-08-04 14:46:00 70 /min [facility] Body temperature 2022-08-04 14:46:00 36.83 Deloris [facility] Body height 2022-08-04 14:46:00 152.4 cm [facility] Body weight 2022-08-04 14:46:00 65.318 kg [facility] BMI 2022-08-04 14:46:00 28.12 kg/m2 [facility] Systolic blood 2022-07-28 21:23:00 134 mm[Hg] Univer sity of pressure [facility] Diastolic blood 2022-07-28 21:23:00 83 mm[Hg] Unive rsity of pressure [facility] Heart rate 2022-07-28 21:23:00 99 /min [facility] Body temperature 2022-07-28 21:23:00 36.83 Deloris [facility] Body height 2022-07-28 21:23:00 152.4 cm [facility] Body weight 2022-07-28 21:23:00 67.042 kg [facility] BMI 2022-07-28 21:23:00 28.87 kg/m2 [facility] Systolic blood 2022-07-14 20:00:00 130 mm[Hg] Univer sity of pressure [facility] Diastolic blood 2022-07-14 20:00:00 82 mm[Hg] Unive rsity of pressure [facility] Heart rate 2022-07-14 20:00:00 95 /min [facility] Body temperature 2022-07-14 20:00:00 36.67 Deloris [facility] Respiratory rate 2022-07-14 20:00:00 18 /min Univ [facility] Body height 2022-07-14 20:00:00 152.4 cm [facility] Body weight 2022-07-14 20:00:00 65.772 kg [facility] BMI 2022-07-14 20:00:00 28.32 kg/m2 [facility] Systolic blood 2022-06-30 15:03:00 112 mm[Hg] Univer sity of pressure [facility] Diastolic blood 2022-06-30 15:03:00 69 mm[Hg] Unive rsity of pressure [facility] Heart rate 2022-06-30 15:03:00 85 /min Universi ty of [facility] Body temperature 2022-06-30 15:03:00 36.61 Deloris Univ ersity of [facility] Branch Respiratory rate 2022-06-30 15:03:00 16 /min Univ ersity of [facility] Body height 2022-06-30 15:03:00 152.4 cm [facility] Body weight 2022-06-30 15:03:00 63.322 kg [facility] BMI 2022-06-30 15:03:00 27.26 kg/m2 [facility] Heart rate 2022-06-18 12:20:00 82 /min Universi ty of [facility] Oxygen saturation in 2022-06-18 12:20:00 100 /min University Arterial blood by [facility] Pulse oximetry Branch Systolic blood 2022-06-18 12:15:00 116 mm[Hg] Univer sity of pressure [facility] Diastolic blood 2022-06-18 12:15:00 86 mm[Hg] Unive rsity of pressure [facility] Body temperature 2022-06-18 12:15:00 37.17 Deloris Univ ersity of [facility] Branch Respiratory rate 2022-06-18 12:15:00 18 /min Univ ersity of [facility] Systolic blood 2022-06-16 14:50:00 102 mm[Hg] Univer sity of pressure [facility] Diastolic blood 2022-06-16 14:50:00 66 mm[Hg] Unive rsity of pressure [facility] Branch Heart rate 2022-06-16 14:50:00 73 /min Universi ty of [facility] Body temperature 2022-06-16 14:50:00 36.83 Deloris Univ [facility] Body height 2022-06-16 14:50:00 152.4 cm [facility] Body weight 2022-06-16 14:50:00 62.687 kg [facility] BMI 2022-06-16 14:50:00 26.99 kg/m2 [facility] Systolic blood 2022-05-19 18:15:00 120 mm[Hg] Univer sity of pressure [facility] Diastolic blood 2022-05-19 18:15:00 73 mm[Hg] Unive rsity of pressure [facility] Heart rate 2022-05-19 18:15:00 83 /min [facility] ty [facility] Body temperature 2022-05-19 18:15:00 36.94 Deloris [facility] Body height 2022-05-19 18:15:00 152.4 cm [facility] Body weight 2022-05-19 18:15:00 62.052 kg [facility] BMI 2022-05-19 18:15:00 26.72 kg/m2 [facility] Systolic blood 2022-04-21 16:49:00 105 mm[Hg] Univer sity of pressure [facility] Diastolic blood 2022-04-21 16:49:00 65 mm[Hg] Unive rsity of pressure [facility] Heart rate 2022-04-21 16:49:00 95 /min [facility] Body temperature 2022-04-21 16:49:00 37 Deloris [facility] Respiratory rate 2022-04-21 16:49:00 18 /min Univ [facility] Body height 2022-04-21 16:49:00 152.4 cm [facility] Body weight 2022-04-21 16:49:00 60.328 kg [facility] BMI 2022-04-21 16:49:00 25.97 kg/m2 [facility] Systolic blood 2022-03-23 19:42:00 103 mm[Hg] Univer sity of pressure [facility] Diastolic blood 2022-03-23 19:42:00 69 mm[Hg] Unive rsity of pressure [facility] Heart rate 2022-03-23 19:42:00 80 /min [facility] Body temperature 2022-03-23 19:42:00 36.78 Deloris [facility] Body height 2022-03-23 19:42:00 152.4 cm [facility] Body weight 2022-03-23 19:42:00 57.607 kg [facility] BMI 2022-03-23 19:42:00 24.80 kg/m2 [facility] Systolic blood 2022-02-24 16:23:00 110 mm[Hg] Univer sity of pressure [facility] Diastolic blood 2022-02-24 16:23:00 69 mm[Hg] Unive rsity of pressure [facility] Heart rate 2022-02-24 16:23:00 90 /min [facility] Body temperature 2022-02-24 16:23:00 36.78 Deloris [facility] Respiratory rate 2022-02-24 16:23:00 18 /min Univ [facility] Body height 2022-02-24 16:23:00 152.4 cm [facility] Body weight 2022-02-24 16:23:00 55.792 kg [facility] BMI 2022-02-24 16:23:00 24.02 kg/m2 [facility] Systolic blood 2022-01-26 15:01:00 126 mm[Hg] Univer sity of pressure [facility] Diastolic blood 2022-01-26 15:01:00 89 mm[Hg] Unive rsity of pressure [facility] Heart rate 2022-01-26 15:01:00 71 /min [facility] Body temperature 2022-01-26 15:01:00 36.94 Deloris [facility] Respiratory rate 2022-01-26 15:01:00 18 /min Univ [facility] Body height 2022-01-26 15:01:00 154.9 cm [facility] Body weight 2022-01-26 15:01:00 56.7 kg [facility] BMI 2022-01-26 15:01:00 23.62 kg/m2 Universi ty [facility] Systolic blood 2021-12-29 16:01:00 113 mm[Hg] Univer sity of pressure [facility] Diastolic blood 2021-12-29 16:01:00 73 mm[Hg] Unive [facility] Heart rate 2021-12-29 16:01:00 96 /min [facility] Body temperature 2021-12-29 16:01:00 37.06 Deloris [facility] Respiratory rate 2021-12-29 16:01:00 18 /min [facility] Body height 2021-12-29 16:01:00 152.4 cm [facility] Body weight 2021-12-29 16:01:00 57.153 kg [facility] BMI 2021-12-29 16:01:00 24.61 kg/m2 Universi ty [facility] HEIGHT 2021-12-13 11:24:00 152.4 cm WEIGHT 2021-12-13 11:24:00 57.153 kg HEIGHT 2021-12-13 11:24:00 152.4 cm WEIGHT 2021-12-13 11:24:00 57.153 kg Procedures Procedure Date / Time Performing Clinician Source Performed ASSIGNMENT OF BENEFITS 2023-04-13 15:16:37 Doctor Unassigned, [facility] [place] [facility] POCT TEST 2023-01-07 18:06:00 Krystal Garrett [facility] URINALYSIS 2023-01-07 17:59:[address] [facility] RAPID STREP SCREEN FOR 2023-01-07 17:59:00 Krystal Garrett [facility] GROUP A [facility] RAPID INFLUENZA A/B 2023-01-07 17:59:00 Krystal Garrett [facility] COVID-19 (ID NOW RAPID 2023-01-07 17:59:00 Krystal Garrett [facility] TESTING) Medical Branch CONSENT/REFUSAL FOR 2023-01-07 16:32:43 Doctor Unassigned, [facility] DIAGNOSIS AND TREATMENT [place] [facility] INSURANCE CORRESPONDENCE 2022-09-08 06:01:00 Doctor Unassigned, [facility] Name [facility] [place] DME/SUPPLY JUSTIFICATION 2022-08-26 06:01:00 Doctor Unassigned, [facility] CBC WITH DIFF 2022-08-17 09:46:00 Chasity [facility] CBC WITH DIFF 2022-08-17 09:46:00 Gaspar [facility] SECTION 2022-08-16 19:26:00 Gaspar [facility] SECTION 2022-08-16 19:26:00 Gaspar [facility] CENTRAL NEURAXIAL BLOCK 2022-08-16 13:55:45 Sanjuanita Bell [facility] SGOT (ASPARTATE AMINO 2022-08-16 11:39:00 Chasity [facility] TRANSFER) Medical Branch CREATININE 2022-08-16 11:39:00 Chasity [facility] ALANINE AMINO 2022-08-16 11:39:00 Chasity [facility] TRANSFERASE([facility] Medical Branch LACTATE DEHYDROGENASE 2022-08-16 11:39:00 Chasity [facility] URIC ACID 2022-08-16 11:39:00 Gaspar [facility] CBC WITH DIFF 2022-08-16 11:39:00 Chasity [facility] SGOT (ASPARTATE AMINO 2022-08-16 11:39:00 Chasity [facility] TRANSFER) Medical Branch CREATININE 2022-08-16 11:39:00 Chasity [facility] ALANINE AMINO 2022-08-16 11:39:00 Chasity [facility] TRANSFERASE([facility] [place] LACTATE DEHYDROGENASE 2022-08-16 11:39:00 Chasity [facility] URIC ACID 2022-08-16 11:39:00 Gaspar [facility] CBC WITH DIFF 2022-08-16 11:39:00 Chasity [facility] URINALYSIS 2022-08-16 10:07:00 Erick [place] [facility] PROTEIN CREAT RATIO URINE 2022-08-16 10:07:00 [facility] URINALYSIS 2022-08-16 10:07:00 Erick Gaspar [place] [facility] PROTEIN CREAT RATIO URINE 2022-08-16 10:07:00 Erick [facility] HOSPITAL ADMISSION 2022-08-15 05:01:00 Doctor Unassigned, [facility] [place] [facility] ASSIGNMENT OF BENEFITS 2022-08-11 15:22:10 [facility] [place] [facility] POCT URINALYSIS W/O 2022-08-11 00:00:00 Erick Gaspar [facility] SPECIFIC GRAVITY Medical Branch POCT URINALYSIS W/O 2022-08-04 00:00:00 Erick Gaspar [facility] SPECIFIC GRAVITY [facility] [place] >14 WEEKS US 2022-07-28 22:21:56 [facility] [place] [facility] PRE-OP 2022-07-28 05:01:00 Doctor Unaguido, [facility] [place] [facility] POCT URINALYSIS W/O 2022-07-28 00:00:00 Erick Gaspar [facility] SPECIFIC GRAVITY Medical Branch POCT URINALYSIS W/O 2022-07-14 00:00:00 Dex Jin [facility] SPECIFIC GRAVITY [facility] [place] TDAP VACCINE, >11 YRS, IM 2022-06-30 15:09:29 [facility]O 2022-06-30 00:00:00 Erick Gaspar [facility] SPECIFIC GRAVITY Medical Branch URINALYSIS 2022-06-18 04:01:00 Erick Gaspar [place] [facility] CLC OR LCC ONLY - WET 2022-06-18 04:01:00 [facility] ASSIGNMENT OF BENEFITS 2022-06-18 03:25:03 [place], [facility] [place] [facility] CONSENT/REFUSAL FOR 2022-06-18 03:18:52 Doctor Rocco [facility] DIAGNOSIS AND TREATMENT [place] [facility] POCT URINALYSIS W/O 2022-06-16 00:00:00 Dex Jin [facility] POCT URINALYSIS W/O 2022-05-19 00:00:00 Erick Gaspar [facility] SPECIFIC [facility] POCT URINALYSIS W/O 2022-04-21 16:50:00 Dex Jin [facility] POCT URINALYSIS W/O 2022-03-23 00:00:00 Erick Gaspar [facility] POCT URINALYSIS W/O 2022-02-24 00:00:00 Erick Gaspar [facility] INSURANCE CORRESPONDENCE 2022-02-19 05:01:00 Doctor Valiente, [facility] SCANNED LAB RESULTS 2022-01-26 05:01:00 Doctor Rocco [facility] Name [facility] [place] POCT URINALYSIS W/O 2022-01-26 00:00:00 Dex Jin [facility] OB TRANSVAGINAL 2021-12-29 19:21:24 Erick Gaspar [facility] URINE DRUG (IMMUNOASSAY) 2021-12-29 16:47:00 Erick Gaspar [facility] DRUG Medical [facility] SCREEN ASSIGNMENT OF BENEFITS 2021-12-29 15:53:15 Doctor Unassshana, [facility] Name [facility] POCT TEST 2021-12-29 00:00:00 Erick Gaspar [facility] POCT URINALYSIS W/O 2021-12-29 00:00:00 Erick Gaspar [facility] SPECIFIC [facility] Plan of Care Planned Activity Planned Date Details Comments Source Future Scheduled 2023-06-[address] [facility] Test 00:00:00 (Season Ended) [code Medical Center = INFLUENZA VACCINE (Season Ended)] Future Scheduled 2023-06-[address] [facility] Test 00:00:00 (#1) [code = Medical Center Influenza Vaccine (#1)] Future Scheduled 2022-10-[address] [facility] Test 00:00:00 (12+) [code = Medical Center DEPRESSION SCREENING (12+)] Future Scheduled 2022-10-[address] [facility] Test 00:00:00 (12+) [code = Medical Center DEPRESSION SCREENING (12+)] Future Scheduled 2022-10-[address] [facility] Test 00:00:00 (12+) [code = Medical Center DEPRESSION SCREENING (12+)] Future Scheduled 2022-06-[address] [facility] Test 00:00:00 (#1) [code = Medical Center INFLUENZA VACCINE (#1)] Future Scheduled [address] [facility] 00:[facility]:00 malignant neoplasm of Medica l Center cervix (procedure) [code = 036209515] Future Scheduled [address] [facility] 00:00:00 malignant neoplasm of [facility] Center cervix (procedure) [code = 591038862] Future Scheduled [address] [facility] 00:00:00 malignant neoplasm of Medica [facility] Center cervix (procedure) [code = 686346086] Future Scheduled 2019 DTAP/TDAP/TD VACCINES [facility] 00:00:00 (1 - Tdap) [code = Medical C enter DTAP/TDAP/TD VACCINES (1 - Tdap)] Future Scheduled 2019 DTAP/TDAP/TD VACCINES [facility] 00:00:00 (1 - Tdap) [code = Medical C enter DTAP/TDAP/TD VACCINES (1 - Tdap)] Future Scheduled 2019 DTAP/TDAP/TD VACCINES [facility] 00:00:00 (1 - Tdap) [code = Medical C enter DTAP/TDAP/TD VACCINES (1 - Tdap)] Future Scheduled 2018 HEPATITIS C SCRE[facility]ING [facility] 00:00:00 [code = HEPATITIS C Medical Center SCREENING] Future Scheduled 2018 HEPATITIS C [facility]CRE[facility]ING [facility] 00:00:00 [code = HEPATITIS C Medical Center SCREENING] Future Scheduled 2018 HEPATITIS C [facility]CRE[facility] 00:00:00 [code = HEPATITIS C Medical Center SCREENING] Future Scheduled [address] [facility] Test 00:00:00 Counseling and Medical Cente r Screening (12+) [code = Tobacco Cessation Counseling and Screening (12+)] Future Scheduled [address] [facility] Test 00:00:00 Counseling and Medical Cente r Screening (12+) [code = Tobacco Cessation Counseling and Screening (12+)] Future Scheduled [address] [facility] Test 00:00:00 Counseling and Medical Cente r Screening (12+) [code = Tobacco Cessation Counseling and Screening (12+)] Future Scheduled 2001-02-25 COVID-19 VACCINE (#1) [facility] 00:00:00 [code = COVID-[address] VACCINE (#1)] Future Scheduled 2001-02-25 COVID-19 VACCINE (#1) [facility] 00:00:00 [code = COVID-[address] VACCINE (#1)] Future Scheduled 2001-02-25 COVID-19 VACCINE (#1) [facility] 00:00:00 [code = COVID-[address] VACCINE (#1)] Future Scheduled [address] [facility] 00:[facility]:00 Chlamydia trachomatis Medica [facility] Center (procedure) [code = 486869847] Future Scheduled [address] [facility] 00:00:00 Chlamydia trachomatis [facility] Center (procedure) [code = 458120607] Future Scheduled [address] [facility] 00:00:00 Chlamydia [facility] (procedure) [code = 906094684] Encounters Start End Encounter Admission Attending Care Care Encounter Source Date/Time Date/Time Type Type Clinicians Facility Department ID 2022-06-18 Outpatient P [facility] BEN [id number] Univers 07:45:48 [facility] 2023-04-13 2023-04-13 Outpatient R ERICK GASPAR [facility] [id number] Univers 10:30:00 10:52:17 ity of [facility] 2023-04-13 2023-04-13 Office Erick Gaspar [facility] 1.2.228.268 [id number] Univers 10:30:00 10:52:17 Visit Blaine SANDERSON 350.1.13.10 i ty [facility] [place] [phone] Al dical NAL [address] [facility] 2023-04-13 2023-04-13 Orders Doctor NORBERTO 1.2.840.114 [id number] Univers 00:00:00 00:00:00 Only Unassigned, MARCELL 350.1.13.10 ity of [place] [facility] 4.2.7.2.686 [place] [phone] [facility] [address] [place] 2023-04-13 2023-04-13 Letter Erick Gaspar [facility] 1.2.621.945 [id number] 03494 Univers 00:00:00 00:00:00 (Out) Blaine SANDERSON 350.1.13.10 i ty of [place] [phone] Al dicwi NAL 134 [facility] 2023-01-07 2023-01-07 Emergency X [facility] ERT [id number] Univers 11:34:00 14:06:00 KRYSTAL howe [facility] 2023-01-07 2023-01-07 Emergency [facility] 1.2.167.421 [id number] Univers 11:34:00 14:06:00 Krystal SANDERSON 350.1.13.10 it[place] [id number] [facility] [address] [place] 2022-10-05 2022-10-05 Outpatient R DAVIN [facility] [id number] Univers 09:00:00 09:45:51 DEX hwoe [facility] 2022-10-05 2022-10-05 Office Davin [facility] 1.2.255.792 [id number] 6047 Univers 09:00:00 09:45:51 Visit Dex SANDERSON 350.1.13.10 i ty [facility] 4.[place] [phone] Al dical NAL [address] [place] [address] 2022-09-08 2022-09-08 Orders Doctor NORBERTO 1.2.840.114 [id number] Univers 00:00:00 00:00:00 Only Unassigned, MARCELL 350.1.13.10 ity of [place] [facility] 4.2.7.2.686 [place] as [phone] [address] 2022-09-07 2022-09-07 Outpatient R ERICK GASPAR [facility] 06586 [id number] Univers 13:00:00 14:08:34 ity of [facility] 2022-09-07 2022-09-07 Routine Chasity [facility] 1.2.944.490 0545 9578 Univers 13:00:00 14:08:34 Blaine SANDERSON 350.1.13.10 ity of [place] [phone] Al dic[address] 2022-08-26 2022-08-26 Telephone Chasity Erick [facility] 1.2.840.114 [id number] Univers 00:00:00 00:00:00 Cam KIN 350.1.13.10 i ty of [place] [phone] [address] 2022-08-26 2022-08-26 Orders Doctor NORBERTO 1.2.840.114 [id number] Univers 00:00:00 00:00:00 Only Unassigned, MARCELL 350.1.13.10 ity of [place] [facility] 4.2.7.2.686 [place] as [phone] [address] 2022-08-24 2022-08-24 Routine Davin [facility] 1.2.467.881 1305 [id number] Univers 16:15:00 16:30:00 Dex SANDERSON 350.1.13.10 ity of [place] [phone] [address] 2022-08-24 2022-08-24 [facility] 38010 [id number] Univers 16:15:00 16:15:00 DEX ity of [facility] 2022-08-20 2022-08-20 Telephone Erick Gaspar [facility] 1.2.840.114 [id number] Univers 00:00:00 00:00:00 Cam [place] 350.1.13.10 i ty of [place] [id number] Al dical [address] 2022-08-15 2022-08-17 Inpatient P ERICK GASPAR [facility] BEN [id number] Univers 23:52:00 21:05:00 ity of [facility] 2022-08-15 2022-08-17 Hospital Erick Gaspar [facility] 1.2.840.114 [id number] Univers 23:52:00 21:05:00 Encounter Cam [place] 350.1.13.10 ity of [place].7.2.[place] [id number] [place] [address] [place] 2022-08-16 2022-08-16 Surgery Erick Gaspar [facility] 1.2.051.806 [id number] [id number] Univers 14:45:00 16:43:00 Cam [place] 350.1.13.10 i ty of [place] [id number] [facility] [address] [place] 2022-08-16 2022-08-16 Anesthesia Sanjuanita Bell [facility] 1.2.840.1 14 [id number] Univers 08:12:00 15:40:00 Event Casper Maldonado [place] 350.1.13. 10 ity of [place]2.[place] [id number] [facility] [address] [place] 2022-08-16 2022-08-16 Anesthesia Kirby [facility] 1.2.840.114 [id number] Univers 08:05:14 08:05:14 Event López [place] 350.1.13.10 i ty of [place] [id number] [facility] [address] [place] 2022-08-15 2022-08-15 Orders Doctor NORBERTO 1.2.840.114 [id number] Univers 00:00:00 00:00:00 Only Unassigned, MARCELL 350.1.13.10 ity of [place] [facility] 4.2.7.2.686 [place] as [phone] [address] 2022-08-14 2022-08-14 Identification Technician Will, Adc Lab Main [facility] 1.2.8 40.114 [id number] Univers 08:00:00 08:15:00 Visit Erick GasparXIN 350.1.13.10 ity of [place] [id number] Al dical NAL 353 [facility] 2022-08-14 2022-08-14 Outpatient R [facility]ASITY [facility] 54140 [id number] Univers 08:00:00 08:00:00 ity of [facility] 2022-08-11 2022-08-11 Routine Chasity [facility] 1.2.950.281 6065 6603 Univers 09:45:00 10:00:00 Cam [place] 350.1.13.10 ity of [place] [phone] Al dical NAL 134 [facility] 2022-08-11 2022-08-11 Outpatient R CHASITY ERICK [facility] [id number] Univers 09:45:00 09:45:00 ity of [facility] 2022-08-11 2022-08-11 Orders Doctor THORNTON 1.2.840.114 [id number] Univers 00:00:00 00:00:00 Only Unassigned, MARCELL 350.1.13.10 ity of [place] [facility] 4.2.7.2.686 [place] as [phone] [address] 2022-08-04 2022-08-04 Outpatient R CHASITY ERICK [facility] [id number] Univers 09:30:00 10:19:44 ity of [facility] 2022-08-04 2022-08-04 Routine Chasity [facility] 1.2.787.168 1104 6912 Univers 09:30:00 10:19:44 Cam [place] 350.1.13.10 ity of [place] [id number] Al dical [address] 2022-08-03 2022-08-03 Identification Technician Ultrasound, Adc [facility] 1.2 .840.114 [id number] Univers 13:00:00 13:33:16 Visit Jonas Gill 350.1.13. 10 [place]y of [place] [id number] [address] 2022-08-03 2022-08-03 Outpatient P JAIRO [facility] [id number] Univers 13:00:00 13:00:00 JONAS itrajni [facility] 2022-07-28 2022-07-28 Outpatient R ERICK GASPAR [facility] [id number] Univers 16:15:00 17:08:25 ity of [facility] 2022-07-28 2022-07-28 Routine Erick Gapsar [facility] 1.2.482.379 [id number] Univers 16:15:00 17:08:25 Blaine SANDERSON 350.1.13.10 ity of [place] [phone] [address] 2022-07-28 2022-07-28 Orders Doctor THORNTON 1.2.840.114 [id number] Univers 00:00:00 00:00:00 Only Unassigned, MARCELL 350.1.13.10 ity of [place] [facility] 4.2.7.2.686 [place] [phone] [address] 2022-07-14 2022-07-14 Outpatient R DAVIN [facility] [id number] Univers 15:00:00 15:16:53 DEX ity [facility] 2022-07-14 2022-07-14 Routine Davin [facility] 1.2.871.630 [id number] [id number] Univers 15:00:00 15:16:53 Dex SANDERSON 350.1.13.10 ity of [place] [phone] Al dical NAL 134 [facility] 2022-07-14 2022-07-14 Outpatient R DAVIN [facility] [id number] Univers 15:00:00 15:00:00 DEX ity [facility] 2022-07-06 2022-07-06 Identification Technician 2, Katarina-Mfm Room [facility] 1.2. 840.114 [id number] Univers 08:00:00 08:31:28 Visit Azul Niru Sujatha CAREER CENTER ADVISOR 350.1. 13.10 ity of [facility] 4.2.7.2.686 [place] as MATERNAL [id number] Med ical & CHILD [address] [place] [address] 2022-07-06 2022-07-06 Outpatient P AZUL [facility] [id number] Univers 08:00:00 08:00:00 SUNDEEP it y of [place] [facility] 2022-06-30 2022-06-30 Outpatient R ERICK GASPAR [facility] [id number] Univers 09:30:00 10:50:51 ity of [facility] 2022-06-30 2022-06-30 Routine Chasity [facility] 1.2.933.387 1522 6577 Univers 09:30:00 10:50:51 Cam [place] 350.1.13.10 ity of [place] [phone] Al dic[address] 2022-06-17 2022-06-18 Outpatient P ERICK GASPAR [facility] BEN 33259 [id number] Univers 22:29:00 07:45:00 ity of [facility] 2022-06-17 2022-06-18 Hospital Erick Gaspar [facility] 1.2.840.114 [id number] Univers 22:29:00 07:45:00 Encounter Cam [place] 350.1.13.10 [place] [id number] [address] 2022-06-17 2022-06-17 Nurse Cheyenne Corral 1.2.840.114 [id number] Univers 00:00:00 00:00:00 Triage MARCELL 350.1.13.10 it y of HOSPITAL 4.2.7.2.686 [place] as [phone] [facility] [address] [place] 2022-06-17 2022-06-17 Orders Doctor NORBERTO 1.2.840.114 [id number] Univers 00:00:00 00:00:00 Only Unassigned, MARCELL 350.1.13.10 ity of [place] [facility] 4.2.7.2.686 [place] [id number] [facility] [address] [place] 2022-06-16 2022-06-16 Outpatient R DAVIN [facility] [id number] [id number] Univers 09:15:00 10:05:09 DEX itrajni [facility] 2022-06-16 2022-06-16 Routine Davin [facility] 1.2.793.555 7922 7079 Univers 09:15:00 10:05:09 Dex SANDERSON 350.1.13.10 ity of [place] [id number] Al dical NAL [address] [place] [address] 2022-05-23 2022-05-23 Case Erick Gaspar [facility] 1.2.877.261 [id number] Univers 00:00:00 00:00:00 Management Blaine SANDERSON 350.1.13.10 ity of [place] [id number] Al dical NAL [address] [place] [address] 2022-05-20 2022-05-20 Telephone Erick Gaspar [facility] 1.2.840.114 [id number] Univers 00:00:00 00:00:00 Cam KIN 350.1.13.10 i ty of [place] [phone] Al dical NAL [address] [place] [address] 2022-05-19 2022-05-19 Outpatient R ERICK GASPAR [facility] [id number] Univers 13:00:00 13:46:10 ity of [facility] 2022-05-19 2022-05-19 Routine Erick Gaspar [facility] 1.2.150.641 [id number] 0889 Univers 13:00:00 13:46:10 Blaine MARCIAXIN 350.1.13.10 ity of [place] [phone] [facility] 134 [facility] 2022-05-11 2022-05-11 Identification Technician 2, Adc Lab [facility] 1.2.840.114 [id number] Univers 09:45:00 10:00:00 Visit Erick Gaspar 350.1.13.10 ity of [place] [id number] [facility] 353 [facility] 2022-05-11 2022-05-11 Outpatient R ERICK GASPAR [facility] [id number] Univers 09:45:00 09:45:00 ity of [facility] 2022-05-10 2022-05-10 Outpatient R [facility] [id number] Univers 10:00:00 10:00:00 ity of [facility] 2022-04-21 2022-04-21 Routine [facility] 1.2.503.980 7698 8850 Univers 11:30:00 11:45:00 Dex [facility] 350.1.13.10 ity of [place] [phone] [facility] 134 [facility] 2022-04-21 2022-04-21 [facility] [id number] Univers 11:30:00 11:30:00 [facility]22-[facility] 2022-03-25 Identification Technician Ultrasound, Ang-Mfm [facility] 1.2 .840.114 [id number] Univers 13:45:00 14:45:00 Visit Ernie Dawson CAREER CENTER ADVISOR 350.1.13.10 ity of [facility] 4.2.7.2.686 [place] MATERNAL [phone] Med ical & CHILD [address] [place] [address] 2022-03-25 2022-03-25 Outpatient P GIL [facility] [id number] Univers 13:45:00 13:45:00 ERNIE ity [facility] 2022-03-23 2022-03-23 Identification Technician 2, Adc Lab [facility] 1.2.840.114 [id number] Univers 15:30:00 15:45:00 Visit Dex Jin 350.1.13.10 [place] [phone] Al dical [facility] [address] [facility] 2022-03-23 2022-03-23 Outpatient R DAVIN [facility] [id number] Univers 14:15:00 15:13:34 DEX carley [facility] 2022-03-23 2022-03-23 Routine Erick Gaspar [facility] 1.2.840.114 [id number] Univers 14:15:00 15:13:34 Dex Jin 350.1.13.10 ity [place] [id number] Al dical [facility] 134 [facility] 2022-02-24 2022-02-24 Routine Erick Gaspar [facility] 1.2.431.105 [id number] [id number] Univers 11:15:00 12:12:17 Blaine SANDERSON 350.1.13.10 ity [place] [id number] Al dic[address] 2022-02-24 2022-02-24 Outpatient R ERICK GASPAR [facility] [id number] Univers 11:15:00 12:12:17 ity of [facility] 2022-02-19 2022-02-19 Orders Doctor NORBERTO 1.2.840.114 [id number] Univers 00:00:00 00:00:00 Only Unassigned, [place]CE[place] 350.1.13.10 ity of [place] [facility] 4.2.7.2.686 [place] [id number] [address] 2022-02-18 2022-02-18 Telephone Erick Gaspar MSLI[facility] 1.2.840.114 [id number] Univers 00:00:00 00:00:00 Blaine SANDERSON 350.1.13.10 i ty of [facility] 4.2.7.2.[place] [phone] Al dical NAL 134 [facility] 2022-02-03 2022-02-03 Telephone Davin [facility] 1.2.840.114 [id number] Univers 00:00:00 00:00:00 Dex SANDERSON 350.1.13.10 i ty of [facility] 4.2.7.2.[place] [phone] Al dical NAL [address] [place] [address] 2022-02-03 2022-02-03 Telephone Chasity Erick [facility] 1.2.840.114 [id number] Univers 00:00:00 00:00:00 Blaine SANDERSON 350.1.13.10 i ty of [facility] 4.2.7.2.[place] [id number] Al dical NAL 134 [facility] 2022-01-26 2022-01-26 Outpatient R DAVIN [facility] [id number] Univers 11:00:00 11:00:00 DEX howe [facility] 2022-01-26 2022-01-26 Identification Technician 2, Adc Lab [facility] 1.2.840.114 [id number] Univers 10:45:00 11:00:00 Visit Dex Jin 350.1.13.10 ity of [facility] 4.2.7.2.[place] [id number] Al dical NAL 353 [facility] 2022-01-26 2022-01-26 Outpatient Sanjuanita JIN [facility] [id number] Univers 10:45:00 10:45:00 DEX howe [facility] 2022-01-26 2022-01-26 Routine Davin [facility] 1.2.966.209 [id number] [id number] Univers 10:00:00 10:15:00 Dex SANDERSON 350.1.13.10 ity of [facility] 4.2.7.2.[place] [phone] Al dical NAL [address] [place] [address] 2022-01-26 2022-01-26 Orders Doctor THORNTON 1.2.840.114 [id number] Univers 00:00:00 00:00:00 Only Unassigned, MARCELL 350.1.13.10 ity of [place] [facility] 4.2.7.2.686 [place] as [id number] [address] 2022-01-01 2022-01-01 Telephone Erick Gaspar [facility] 1.2.840.114 [id number] Univers 00:00:00 00:00:00 Cam [place] 350.1.13.10 i ty of [place] [phone] Al dical NAL [address] [place] [address] 2022-01-01 2022-01-01 Telephone Erick Gaspar [facility] 1.2.840.114 [id number] Univers 00:00:00 00:00:00 Cam [place] 350.1.13.10 i ty of [place] 437.0542693 Al dic[address] 2021-12-29 2021-12-29 Initial Chasity [facility] 1.2.731.295 [id number] 8238 Univers 10:45:00 11:59:47 Cam [place] 350.1.13.10 ity of [place] [id number] [address] 2021-12-29 2021-12-29 Outpatient R CHASITY [facility] 69957 [id number] Univers 10:45:00 11:59:47 ity of [facility] 2021-12-29 2021-12-29 Outpatient R CHASITY [facility] 67755 [id number] Univers 10:45:00 10:45:00 ity of [facility] 2021-12-29 2021-12-29 Orders Doctor THORNTON 1.2.840.114 [id number] Univers 00:00:00 00:00:00 Only Unassigned, MARCELL 350.1.13.10 ity of [place] [facility] 4.2.7.2.686 [place] as [phone] [address] 2021-12-22 2021-12-22 Emergency EM Imelda-G [facility] KETTY F000 [id number] [facility] 14:07:00 17:24:00 randy, [facility] 2021-12-13 2021-12-13 Emergency ER [facility] Emergency [id number] [facility] 11:19:00 12:19:00 TULIO Results Test Description Test Time Test Comments Results Result Comments Source POCT TEST 2023-01-07 18:06:00 Test Item Value Reference Range Interpretation Comme nts POCT PREG (test code = 1605) Negative On board controls acceptable with C Line (test code = 3574) Present POCT PREG LOT # (test code = 3575) HCG [id number] POCT PREG TEST DATE (test code = 3576) 07/22/2024 Lab Interpretation (test code = 18465-4) [facility] [id number] 10:29:17 Test Item Value Reference Range Interpretation Comments WBC (test code = See_Comment H [Automated 9090-2) message] The sy stem which generated this result transmitted reference range : 4.30 - 11.10 10*3/?L. The reference range was not used to interpret this result as normal/abnormal . RBC (test code = See_Comment L [Automated 789-8) message] The sy stem which generated this result transmitted reference range : 3.93 - 5.25 10*6/?L. The reference range was not used to interpret this result as normal/abnormal . HGB (test code = 9.5 g/dL 11.6-15.0 L 718-7) HCT (test code = 29.7 % 35.7-45.2 L 4544-3) MCV (test code = 77.7 fL 80.6-95.5 L 787-2) MCH (test code = 24.9 pg 25.9-32.8 L 785-6) MCHC (test code = 32.0 g/dL 31.6-35.1 786-4) RDW-SD (test code = 41.7 fL 39.0-49.9 94110-4) RDW-CV (test code = 15.2 % 12.0-15.5 788-0) PLT (test code = See_Comment L [Automated 777-3) message] The sy stem which generated this result transmitted reference range : 166 - 358 10*3/ ?L. The reference r lucio was not used to interpret this result as normal/abnormal . MPV (test code = 12.3 fL 9.5-12.9 85542-7) NRBC/100 WBC (test See_Comment [Automat ed code = 2635182237) message] The system which generated this result transmitted reference range : 0.0 - 10.0 /100 WBCs. The refer ence range was not u sed to interpret th is result as normal/abnormal . NRBC x10^3 (test code See_Comment [Auto mated = 4903878677) message] The s ystem which generated this result transmitted reference range : 10*3/?L. The reference range was not used to interpret this result as normal/abnormal . GRAN MAT (NEUT) % 81.9 % (test code = 770-8) IMM GRAN % (test code 0.60 % = 3211822268) LYMPH % (test code = 10.0 % 736-9) MONO % (test code = 7.2 % 5905-5) EOS % (test code = 0.1 % 713-8) BASO % (test code = 0.2 % 706-2) GRAN MAT x10^3(ANC) 9.29 10*3/uL 1.88-7.09 H (test code = 6156300488) IMM GRAN x10^3 (test 0.07 10*3/uL 0.00-0.06 H code = 3756494040) LYMPH x10^3 (test code 1.13 10*3/uL 1.32-3.29 L = 731-0) MONO x10^3 (test code 0.82 10*3/uL 0.33-0.92 = 742-7) EOS x10^3 (test code = 0.03-0.39 L 711-2) BASO x10^3 (test code 0.01-0.07 = 704-7) Lab Interpretation Abnormal (test code = 38793-5) [facility] with [id number] 10:29:17 Test Item Value Reference Range Interpretation Comments WBC (test code = See_Comment H [Automated 6690-2) message] The sy stem which generated this result transmitted reference range : 4.30 - 11.10 10*3/?L. The reference range was not used to interpret this result as normal/abnormal . RBC (test code = See_Comment L [Automated 789-8) message] The sy stem which generated this result transmitted reference range : 3.93 - 5.25 10*6/?L. The reference range was not used to interpret this result as normal/abnormal . HGB (test code = 9.5 g/dL 11.6-15.0 L 718-7) HCT (test code = 29.7 % 35.7-45.2 L 4544-3) MCV (test code = 77.7 fL 80.6-95.5 L 787-2) MCH (test code = 24.9 pg 25.9-32.8 L 785-6) MCHC (test code = 32.0 g/dL 31.6-35.1 786-4) RDW-SD (test code = 41.7 fL 39.0-49.9 05998-9) RDW-CV (test code = 15.2 % 12.0-15.5 788-0) PLT (test code = See_Comment L [Automated 777-3) message] The sy stem which generated this result transmitted reference range : 166 - 358 10*3/ ?L. The reference r lucio was not used to interpret this result as normal/abnormal . MPV (test code = 12.3 fL 9.5-12.9 95376-0) NRBC/100 WBC (test See_Comment [Automat ed code = [id number]) message] The system which generated this result transmitted reference range : 0.0 - 10.0 /100 WBCs. The refer ence range was not u sed to interpret th is result as normal/abnormal . NRBC x10^3 (test code See_Comment [Auto mated = [id number]) message] The s ystem which generated this result transmitted reference range : 10*3/?L. The reference range was not used to interpret this result as normal/abnormal . GRAN MAT (NEUT) % 81.9 % (test code = 770-8) IMM GRAN % (test code 0.60 % = [id number]) LYMPH % (test code = 10.0 % 736-9) MONO % (test code = 7.2 % 5905-5) EOS % (test code = 0.1 % 713-8) BASO % (test code = 0.2 % 706-2) GRAN MAT x10^3(ANC) 9.29 10*3/uL 1.88-7.09 H (test code = [id number]) IMM GRAN x10^3 (test 0.07 10*3/uL 0.00-0.06 H code = [id number]) LYMPH x10^3 (test code 1.13 10*3/uL 1.32-3.29 L = 731-0) MONO x10^3 (test code 0.82 10*3/uL 0.33-0.92 = 742-7) EOS x10^3 (test code = 0.03-0.39 L 711-2) BASO x10^3 (test code 0.01-0.07 = 704-7) Lab Interpretation Abnormal (test code = 80535-5) [facility] URINALYSIS W/O SPECIFIC [id number] 14:40:00 Test Item Value Reference Range Interpretation Comments POCT PH U (test code = 3254) n/a 5-8 POCT U LEUK EST (test code = n/a Negative - Negative 3263) POCT U NIT (test code = 3262) n/a Negative - Negative POCT U PROT (test code = 3259) Negative Negative - Negative POCT U GLU (test code = 3256) Normal Negative - Negative POCT U KETONE (test code = 3258) n/a Negative - Negative POCT U BLD (test code = 3257) n/a Negative - [facility] SPE[facility] [id number] 14:44:00 Test Item Value Reference Range Interpretation Comments POCT PH U (test code = 3254) N/A 5-8 POCT U LEUK EST (test code = N/A Negative - Negative 3263) POCT U NIT (test code = 3262) N/A Negative - Negative POCT U PROT (test code = 3259) NEGATIVE Negative - Negative POCT U GLU (test code = 3256) NORMAL Negative - Negative POCT U KETONE (test code = 3258) N/A Negative - Negative POCT U BLD (test code = 3257) N/A Negative - Negative [facility] SPECIFIC [id number] 21:21:00 Test Item Value Reference Range Interpretation Comments POCT PH U (test code = 3254) n/a 5-8 POCT U LEUK EST (test code = n/a Negative - Negative 3263) POCT U NIT (test code = 3262) n/a Negative - Negative POCT U PROT (test code = 3259) Negative Negative - Negative POCT U GLU (test code = 3256) Normal Negative - Negative POCT U KETONE (test code = 3258) Negative Negative - Negative POCT U BLD (test code = 3257) Negative Negative - [facility] [id number] 21:21:00 Test Item Value Reference Range Interpretation Comments POCT PH U (test code = 3254) n/a 5-8 POCT U LEUK EST (test code = n/a Negative - Negative 3263) POCT U NIT (test code = 3262) n/a Negative - Negative POCT U PROT (test code = 3259) Negative Negative - Negative POCT U GLU (test code = 3256) Normal Negative - Negative POCT U KETONE (test code = 3258) Negative Negative - Negative POCT U BLD (test code = 3257) Negative Negative - Negative [facility] SPECIFIC [id number] 19:58:00 Test Item Value Reference Range Interpretation Comments POCT PH U (test code = 3254) n/a 5-8 POCT U LEUK EST (test code = n/a Negative - Negative 3263) POCT U NIT (test code = 3262) n/a Negative - Negative POCT U PROT (test code = 3259) negative Negative - Negative POCT U GLU (test code = 3256) negative Negative - Negative POCT U KETONE (test code = 3258) n/a Negative - Negative POCT U BLD (test code = 3257) n/a Negative - Negative [facility] SPECIFIC [id number] 19:58:00 Test Item Value Reference Range Interpretation Comments POCT PH U (test code = 3254) n/a 5-8 POCT U LEUK EST (test code = n/a Negative - Negative 3263) POCT U NIT (test code = 3262) n/a Negative - Negative POCT U PROT (test code = 3259) negative Negative - Negative POCT U GLU (test code = 3256) negative Negative - Negative POCT U KETONE (test code = 3258) n/a Negative - Negative POCT U BLD (test code = 3257) n/a Negative - Negative [facility] URINALYSIS W/O SPECIFIC [id number] 15:06:00 Test Item Value Reference Range Interpretation Comments POCT PH U (test code = 3254) n/a 5-8 POCT U LEUK EST (test code = n/a Negative - Negative 3263) POCT U NIT (test code = 3262) n/a Negative - Negative POCT U PROT (test code = 3259) negative Negative - Negative POCT U GLU (test code = 3256) negative Negative - Negative POCT U KETONE (test code = 3258) n/a Negative - Negative POCT U BLD (test code = 3257) n/a Negative - Negative [facility] URINALYSIS W/O SPECIFIC [id number] 14:48:00 Test Item Value Reference Range Interpretation Comments POCT PH U (test code = 3254) n/a 5-8 POCT U LEUK EST (test code = n/a Negative - Negative 3263) POCT U NIT (test code = 3262) n/a Negative - Negative POCT U PROT (test code = 3259) Negative Negative - Negative POCT U GLU (test code = 3256) normal Negative - Negative POCT U KETONE (test code = 3258) n/a Negative - Negative POCT U BLD (test code = 3257) n/a Negative - Negative [facility] SPECIFIC [id number] 18:13:00 Test Item Value Reference Range Interpretation Comments POCT PH U (test code = 3254) n/a 5-8 POCT U LEUK EST (test code = 3263) n/a Negative - Negative POCT U NIT (test code = 3262) n/a Negative - Negative POCT U PROT (test code = 3259) Trace Negative - Negative POCT U GLU (test code = 3256) Normal Negative - Negative POCT U KETONE (test code = 3258) n/a Negative - Negative POCT U BLD (test code = 3257) n/a Negative - Negative [facility] URINALYSIS W/O SPECIFIC [id number] 16:50:00 Test Item Value Reference Range Interpretation Comments POCT PH U (test code = 3254) n/a 5-8 POCT U LEUK EST (test code = n/a Negative - Negative 3263) POCT U NIT (test code = 3262) n/a Negative - Negative POCT U PROT (test code = 3259) negative Negative - Negative POCT U GLU (test code = 3256) negative Negative - Negative POCT U KETONE (test code = 3258) n/a Negative - Negative POCT U BLD (test code = 3257) n/a Negative - Negative [facility] URINALYSIS W/O SPECIFIC [id number] 19:41:00 Test Item Value Reference Range Interpretation Comments POCT PH U (test code = 3254) n/a 5-8 POCT U LEUK EST (test code = n/a Negative - Negative 3263) POCT U NIT (test code = 3262) n/a Negative - Negative POCT U PROT (test code = 3259) negative Negative - Negative POCT U GLU (test code = 3256) negative Negative - Negative POCT U KETONE (test code = 3258) n/a Negative - Negative POCT U BLD (test code = 3257) n/a Negative - Negative [facility] SPECIFIC [id number] 16:27:00 Test Item Value Reference Range Interpretation Comments POCT PH U (test code = 3254) N/A 5-8 POCT U LEUK EST (test code = N/A Negative - Negative 3263) POCT U NIT (test code = 3262) N/A Negative - Negative POCT U PROT (test code = 3259) Negative Negative - Negative POCT U GLU (test code = 3256) Negative Negative - Negative POCT U KETONE (test code = 3258) N/A Negative - Negative POCT U BLD (test code = 3257) N/A Negative - Negative [facility] URINALYSIS W/O SPECIFIC [id number] 15:17:00 Test Item Value Reference Range Interpretation Comments POCT PH U (test code = 3254) n.a 5-8 POCT U LEUK EST (test code = 3263) n.a Negative - Negative POCT U NIT (test code = 3262) n.a Negative - Negative POCT U PROT (test code = 3259) neg Negative - Negative POCT U GLU (test code = 3256) neg Negative - Negative POCT U KETONE (test code = 3258) n.a Negative - Negative POCT U BLD (test code = 3257) n.a Negative - Negative [id number] 16:27:00 Test Item Value Reference Range Interpretation Comments POCT PREG (test code = 1605) Positive On board controls acceptable with C Yes Line (test code = 3574) POCT PREG LOT # (test code = 3575) POCT PREG TEST DATE (test code = 3576) [facility] URINALYSIS W/O SPECIFIC [id number] 16:26:00 Test Item Value Reference Range Interpretation Comments POCT PH U (test code = 3254) n/a 5-8 POCT U LEUK EST (test code = 3263) n/a Negative - Negative POCT U NIT (test code = 3262) n/a Negative - Negative POCT U PROT (test code = 3259) neg Negative - Negative POCT U GLU (test code = 3256) neg Negative - Negative POCT U KETONE (test code = 3258) n/a Negative - Negative POCT U BLD (test code = 3257) n/a Negative - Negative [facility] [id number] 17:28:00 Test Item Value Reference Range Interpretation Comments HCG SERUM (test 71528 INTERPRETATI ON:VALUES BETWEEN code = HCG) 15-20 milliInte rnational units/mL NEED T O BERETESTED WITHIN 48 HOURS . All units for these ranges ar e in milliInternatio nalunits/mL0-1 WK AFTER CONCEP TION 0-50 1-2 WKS AFTER HENOK PTION 40-3002-3 WKS AFTER HENOK PTION 100-1,0003-4 WK S AFTER CONCEPTION 500- 6,0001-2 MONTHS AFTER CONCEPTIO N 5,000-200,0002- 3 MONTHS AFTER CONCEPTION 10,0 00-100,0002ND TRIMESTER 3,000 -50,0003RD TRIMESTER 1,000 -50,000 SPECIMENS WITH AN HCG LEVEL FROM 0-6 milliInternatio nalunits/mL SHOULD BE CONSI DERED NEGATIVE COMPREHENSIVE METABOLIC [id number] 16:45:00 Test Item Value Reference Range Interpretation Comments SODIUM (test code = NA) 139 mEq/L 135-145 N POTASSIUM (test code = K) 3.4 mEq/L 3.5-5.0 L CHLORIDE (test code = CL) 103 mEq/L 100-115 N CARBON DIOXIDE (test code = CO2) 26 mEq/L 22-31 N ANION GAP (test code = GAP) 13.50 10-20 N GLUCOSE (test code = GLU) 73 mg/dL 65-110 N BLOOD UREA NITROGEN (test code = 9 mg/dL 7-18 N BUN) GLOMERULAR FILTRATION RATE (test 118 ml/min >60 N code = GFR) CREATININE (test code = CREAT) 0.7 mg/dL 0.5-1.0 N TOTAL PROTEIN (test code = PROT) 8.9 gm/dL 6.3-8.2 H ALBUMIN (test code = ALB) 4.4 gm/dL 3.4-4.8 N CALCIUM (test code = CA) 9.8 mg/dL 8.4-10.2 N BILIRUBIN TOTAL (test code = BILT) 0.8 mg/dL 0.2-1.0 N SGOT/AST (test code = AST) 18 units/L 15-37 N SGPT/ALT (test code = ALT) 13 units/L 12-78 N ALKALINE PHOSPHATASE TOTAL (test 54 units/L 46-116 N code = ALKP) CBC W/AUTO [id number] 16:25:00 Test Item Value Reference Range Interpretation Comments WHITE BLOOD CELL (test code = WBC) 6.1 K/mm3 6.5-12.3 L RED BLOOD CELL (test code = RBC) 4.90 M/mm3 3.51-4.69 H HEMOGLOBIN (test code = HGB) 13.5 g/dL 10.1-13.8 N HEMATOCRIT (test code = HCT) 41.8 % 32.5-41.8 N MEAN CELL VOLUME (test code = MCV) 85.3 fL 84.6-96.6 N MEAN CELL HGB (test code = MCH) 27.6 pg 27.3-33.9 N MEAN CELL HGB CONCETRATION (test 32.3 gm/dL 32.0-34.2 N code = MCHC) RED CELL DISTRIBUTION WIDTH (test 13.1 % 12.2-16.3 N code = RDW) PLATELET COUNT (test code = PLT) 346 K/mm3 134-363 N MEAN PLATELET VOLUME (test code = 10.4 fL 9.2-12.7 N MPV) NEUTROPHIL % (test code = NT%) 59.6 % 57.9-77.3 N LYMPHOCYTE % (test code = LY%) 32.6 % 14.5-29.7 H MONOCYTE % (test code = MO%) 6.8 % 3.6-10.2 N EOSINOPHIL % (test code = EO%) 0.3 % 0.0-3.0 N BASOPHIL % (test code = BA%) 0.5 % 0.1-0.9 N NEUTROPHIL # (test code = NT#) 3.7 K/mm3 LYMPHOCYTE # (test code = LY#) 2.0 K/mm3 MONOCYTE # (test code = MO#) 0.4 K/mm3 EOSINOPHIL # (test code = EO#) 0.02 K/mm3 BASOPHIL # (test code = BA#) 0.0 K/mm3 RBC MORPHOLOGY REQUIRED (test code NORMAL NORMAL = RBCM) PLATELET MORPHOLOGY REQUIRED (test NORMAL NORMAL code = PLTMR) UA RFLX MICR CULT IF [id number] 15:22:00 Test Item Value Reference Range Interpretation Comments UA COLOR (test code = COLU) YELLOW YELLOW UA APPEARANCE (test code = CLEAR CLEAR APPU) UA GLUCOSE DIPSTICK (test code NEGATIVE NEG = DGLUU) UA BILIRUBIN DIPSTICK (test NEGATIVE NEG code = BILU) UA KETONE DIPSTICK (test code NEGATIVE NEG = KETU) UA SPECIFIC GRAVITY (test code 1.024 1.001-1.035 N = SGU) UA BLOOD DIPSTICK (test code = NEG NEG CANDICE) UA PH DIPSTICK (test code = 5.0 5-9 RENETTA) UA PROTEIN DIPSTICK (test code NEGATIVE NEG = PROU) UA UROBILINIOGEN DIPSTICK NEGATIVE mg/dL NEG (test code = URO) UA NITRITE DIPSTICK (test code NEG NEG = REHAN) UA LEUKOCYTE ESTERASE DIPSTICK NEG NEG (test code = LEUU) UA WBC (test code = WBCU) 0-2 #/hpf NONE SEEN UA RBC (test code = RBCU) 0-2 #/hpf NONE SEEN UA EPITHELIAL CELLS (test code RARE #/HPF RARE-FEW = EPIU) UA MUCUS (test code = MUCU) 4+ NONE SEEN Indication for culture: Suprapubic PainSpecimen Description: CLEAN CATCH- US PREG UT [id number] 00:00:00 [facility] : 2000 Sex: F Patient Name: SANDEEP ANTHONY Unit No: [id number] EXAMS: CPT CODE: [id number] US PREG UT TRANSVAGINAL 89839 PROCEDURE INFORMATION: Exam: US First Trimester (Transabdominal), (Transvaginal), and US Duplex Artery or Vein (Ovaries) Limited Exam date and time: 12/22/2021 2:52 PM Age: 21 years old Clinical indication: Lmp or gestational age (in weeks): 6w5d; Other: 6 weeks vaginal bleeding TECHNIQUE: Imaging protocol: Real-time transabdominal and transvaginal obstetrical ultrasound of the maternal pelvis and a first trimester , less than 14 weeks 0 days, with image documentation. Transvaginal imaging was used for better evaluation of the endometrium, adnexa, and/or cervix. Real-time duplex ultrasound scan of the arterial or venous flow of the ovaries with B-mode, colorDoppler flow and spectral waveform analysis. Complete obstetrical exam, limited duplex. COMPARISON: No relevant prior studies available. FINDINGS: Uterus measured 8.9 x 4.9 x 6.5 cm. Uterus contains a g estational sac, yolk sac and pole. Mean crown-rump length is 3.6 mm consistent with estimated age of 6 weeks and 0 days. cardiac activity noted with are rate of 110-113 bpm. No subchorionic bleed was seen. No uterine fibroids noted. Right ovary measures 3.2 x 1.5 x 1.3 cm. Doppler unr emarkable except for a 2.3 cm corpus luteum cyst. Doppler flow demonstrated in the left ovary. In the right adnexa, there is a serpiginous tubular structure, measuring at least 5.4 cm in size, suspicious for right hydrosalpinx. No significant free fluid is seen. IMPRESSION: 1. Live intrauterine gestation with estimated age of 6 weeks and 0 days. 2. Suspect right adnexal hydrosalpinx. at 1616 Reported and signed by: Klaus De MD CC: Lincoln Sanders MD Technologist: Tahmina Escalante RDMS, T Probe: [id number] Trnscrbd D/ (1616) GCD.CPS Orig Print D/T: S: 12/22/2021 (1617) [facility] NAME: SANDEEP ANTHONY Radiology Department PHYS: Lincoln Khan [address] : 2000 AGE: 21 SEX: F [place], [place] [address] LOC: MIROSLAVA PHONE #: [phone] EXAM DATE: 12/22/2021 STATUS: [facility] FAX #: [phone] RAD NO: Page 1 Signed Report Patient Name: SANDEEP ATNHONYUnit No: [id number] EXAMS: CPT CODE: [id number] PREG UT TRANSVAGINAL 22657 (Continued) [facility] NAME: SANDEEP ANTHONY Radiology Department PHYS: Lincoln Khan [address] : 2000 AGE: 21 SEX: F [place], [place] [address] LOC: [place] PHONE #: [phone] EXAM DATE: 12/22/2021 STATUS: REG ER FAX #: [phone] RAD NO: Page 2 Signed Report - DUP AB/PEL/[id number] 00:00:00 [facility] : 2000 Sex: F Patient Name: SANDEEP ANTHONY Unit No: [id number] EXAMS: CPT CODE: [id number] DUP AB/PEL/SC/LTD 33761 PROCEDURE INFORMATION: Exam: US First Trimester (Transabdominal), (Transvaginal), and US Duplex Artery or Vein (Ovaries) Limited Exam date and time: 12/22/2021 2:52 PM Age: 21 years old C linical indication: Lmp or gestational age (in weeks): 6w5d; Other: 6 weeks vaginal bleeding TECHNIQUE: Imaging protocol: Real-time transabdominal and transvaginal obstetrical ultrasound of the maternal pelvis and a first trimester , less than 14 weeks 0 days, with image documentation. Transvaginal imaging was used for better evaluation of the endometrium, adnexa, and/or cervix. Real-time duplex ultrasound scan of the arterial or venous flow of the ovaries with B-mode, color Doppler flow and spectral waveform analysis. Complete obstetrical exam, limited duplex. COMPARISON: No relevant prior studies available. FINDINGS: Uterus measured 8.9 x 4.9 x 6.5 cm. Uterus contains a gestational sac, yolk sac and pole. Mean crown-rump length is 3.6 mm consistent with estimated age of 6 weeks and 0 days. cardiac activity noted with are rate of 110-113 bpm. No subchorionic bleed was seen. No uterine fibroids noted. Right ovary measures 3.2 x 1.5 x 1.3 cm. Doppler unremarkable except for a 2.3 cm corpus luteum cyst. Doppler flow demonstrated in the left ovary. In the right adnexa, there is a serpiginous tubular structure, measuring at least 5.4 cm in size, suspicious for right hydrosalpinx. No significant free fluid is seen. IMPRESSION: 1. Live intrauterine gestation w ith estimated age of 6 weeks and 0 days. 2. Suspect right adnexal hydrosalpinx. at 1616 Reported and signed by: Klaus De MD CC: Lincoln Sanders MD Technologist: Tahmina Escalante RDMS, RVT Probe: Trnscrbd D/ (1616) GCD.CPS Orig Print D/T: S: 12/22/2021 (1617) [facility] NAME: SANDEEP ANTHONY Radiology Department PHYS: Lincoln Khan [address] : 2000 AGE: 21 SEX: F [place] [address] LOC: M[place]LA[place] PHONE #: [phone] EXAM DATE: 12/22/2021 STATUS: REG ER FAX #: [phone] RAD NO: Page 1 Signed Report Patient Name: SANDEEP ANTHONY Unit No: [id number] EXAMS: CPT CODE: [id number] DUP AB/PEL/SC/LTD 54886 (Continued) [facility] Rad[facility] Department PHYS: Lincoln Khan [address] : 2000 AGE: 21 SEX: F [place] [address] LOC: M[place] PHONE #: [phone] EXAM DATE: 12/22/2021 STATUS: [facility] FAX #: [phone] RAD NO: Page 2 Signed Report- US PREG EVAL 1ST [id number] 00:00:00 [facility] : 2000 Sex: F Patient Name: SANDEEP ANTHONY Unit No: [id number] EXAMS: CPT CODE: [id number] US PREG EVAL 1ST TRIMTR 88751 PROCEDURE INFORMATION: Exam: US First Trimester (Transabdominal), (Transvaginal), and US Duplex Artery or Vein (Ovaries) Limited Exam date and time: 12/22/2021 2:52 PM Age: 21 years old Clinical indication: Lmp or gestational age (in weeks): 6w5d; Other: 6 weeks vaginal bleeding TECHNIQUE: Imaging protocol: Real-time transabdominal and transvaginal obstetrical ultrasound of the maternal pelvis and a first trimester , less than 14 weeks 0 days, with image documentation. Transvaginal imaging was used for better evaluation of the endometrium, adnexa, and/or cervix. Real-time duplex ultrasound scan of the arterial or venous flow of the ovaries with B-mode, colorDoppler flow and spectral waveform analysis. Complete obstetrical exam, limited duplex. COMPARISON: No relevant prior studies available. FINDINGS: Uterus measured 8.9 x 4.9 x 6.5 cm. Uterus contains a g estational sac, yolk sac and pole. Mean crown-rump length is 3.6 mm consistent with estimatedage of 6 weeks and 0 days. cardiac activity noted with are rate of 110-113 bpm. No subchorionic bleed was seen. No uterine fibroids noted. Right ovary measures 3.2 x 1.5 x 1.3 cm. Doppler unremarkable except for a 2.3 cm corpus luteum cyst. Doppler flow demonstrated in the left ovary. In the right adnexa, there is a serpiginous tubular structure, measuring at least 5.4 cm in size, suspicious for right hydrosalpinx. No significant free fluid is seen. IMPRESSION: 1. Live intrauterine gestation with estimated age of 6 weeks and 0 days. 2. Suspect right adnexal hydrosalpinx. at 1616 Reported and signed by: Klaus De MD CC: Lincoln Sanders MD Technologist: Tahmina Escalante RDMS, RVT Probe: Trnscrbd D/ (1616) GCD.CPS Orig Print D/T: S: 12/22/2021 (1616) [facility] NAME: SANDEEP ANTHONY Radiology Department PHYS: Lincoln Khan [address] : 2000 AGE: 21 SEX:F [place] [address] LOC: NereydaERS PHONE #: [phone] EXAM DATE: 12/22/2021 STATUS: REG ER FAX #: [phone] RAD NO: Page 1 Signed Report Patient Name: ANTHONY,PATIKARL Unit No: [id number] EXAMS: CPT CODE: [id number] US PREG EVAL 1ST TRIMTR 01614 (Continued) [facility] NAME: SANDEEP ANTHONY Radiology Department PHYS: Lincoln Khan [address] : 2000 AGE: 21 SEX: F [place] [address] LOC: NereydaERS PHONE #: [phone] EXAM DATE: 12/22/2021 STATUS: REG ER FAX #: [phone] RAD NO: Page 2 Signed Report URINALYSIS W/ REFLEX URINE [id number] 11:55:53 Test Item Value Reference Range Interpretation Comments COLOR (BEAKER) (test code = 470) Yellow CLARITY (BEAKER) (test code = 469) Clear SPECIFIC GRAVITY UA (BEAKER) (test >= 1.001-1.035 code = 468) PH UA (BEAKER) (test code = 467) 6.0 5.0-8.0 PROTEIN UA (BEAKER) (test code = Negative Negative 464) GLUCOSE UA (BEAKER) (test code = Negative Negative 365) KETONES UA (BEAKER) (test code = Negative Negative 371) BILIRUBIN UA (BEAKER) (test code = Negative Negative 462) BLOOD UA (BEAKER) (test code = 461) Negative Negative NITRITE UA (BEAKER) (test code = Negative Negative 465) LEUKOCYTE ESTERASE UA (BEAKER) Negative Negative (test code = 466) UROBILINOGEN UA (BEAKER) (test code 0.2 mg/dL 0.2-1.0 = 463) BACTERIA (BEAKER) (test code = 517) Few MUCUS (BEAKER) (test code = 1574) Moderate RBC UA-MANUAL (BEAKER) (test code = <5 /HPF 1659) WBC UA-MANUAL (BEAKER) (test code = <5 /HPF 1661) SOURCE(BEAKER) (test code = 2795) SCREEN, [id number] 11:48:56 Test Item Value Reference Range Interpretation Comments TEST URINE (BEAKER) (test Positive code = 583) Notes Date/Time Note Provider Source 2021-12-22 16:26:00-00:00 [facility] EMERGENCY PROVIDER REPORT REPORT#:[id number] REPORT STATUS: Signed DATE:12/22/21 TIME: 1626 PATIENT: SANDEEP ANTHONY UNIT #: [id number] ROOM/BED: AGE: 21 SEX: F PCP PHYS: No Primary or Family Ph ysician SERVICE AUTHOR: Mundo Sanders MD * ALL edits or amendments must be made on the el [employer] It In Personronic/computer document * HPI-General Illness General Initial Greet Date/Time 12/22/21 1411 Presentation Chief Complaint Pelvic pain Free Text HPI Notes Free Text HPI Notes 21 years old patient no past medical history 6 w eeks presents complaining of 1 day of pelvic pain, no vaginal bleeding, no leakage of fluid, no urinary symptoms or any other complaints. Review of Systems ROS Statements All systems rev neg except as marked. Free Text ROS Notes Free Text ROS Notes CONSTITUTIONAL: Normal; negative for fev er, weight change, fatigue, or aching. HEENT: Eyes normal; negative for, irritation, or visual field defects. Ears normal; Negative for pain . Nose normal; Negative for runny nose, sinus problems , or nosebleeds. Mouth normal; Negative for dent al problems,. Throat normal; Negative for hoarseness, difficulty swallowing, or sore throat. CARDIOVASCULAR: Normal; Negative for chest pain or, high blood pressure, orthopnea, PULMONARY: Normal; Negative for cough, sputum, shortness of breath or wheezing, SKIN: Normal; Negative for rashes. MUSCULOSKELETAL: Normal; Negative for back pain, joint pain. NEUROLOGIC: Normal; Negative for blackouts, head aches, seizures or dizziness. PSYCHIATRIC: Normal; Negative for anxiety, depre ssion, or phobias. ENDOCRINE: Normal; Negative for diabetes, thyroid.HEMATOLOGIC/LYMPHATIC: Normal; Negative for anemia, swollen glands, or blood di sorders. IMMUNOLOGIC: Negative; Negative for steroids, ch emotherapy, or cancer. VASCULAR: Normal; Negative for varicose veins, b lood clots, or leg ulcers. Past Medical History - Adult Stated Complaint 6 WKS,LOWER ABD PAIN,CRAMPING Allergies Coded Allergies: Penicillins (HIVES 12/22/21) Review of Nursing Notes Rev avail, and agree Physical Exam Vital Signs Vital Signs First Documented: Result Date Time Pulse Ox 100 12/22 1437 B/P 118/75 / 1437 B/P Mean 89 /08 1437 O2 Delivery Room air 12/22 1437 Temp 36.8 12/22 1437 Pulse 100 12/22 1437 Resp 18 12/22 1437 Last Documented: Result Date Time Pulse Ox 100 12/22 1437 B/P 118/75 12/22 1437 B/P Mean 89 /08 1437 O2 Delivery Room air 12/22 1437 Temp 36.8 12/22 1437 Pulse 100 12/22 1437 Resp 18 12/22 1437 Review of Vital Signs Reviewed, Vital signs norm al Basic Physical Exam Basic PE GEN: Well appearing/NAD, HEAD: Atraumat ic/NC, ENT: Membranes moist, RESP: No resp distress, ABD: Soft/non-te nder, EXT: No gross abnormality, SKIN: No rashes, warm/dry, NEURO: alert oriented Interpretation Diagnostics Lab Results Interpretation Results Laboratory Tests 12/22/21 1546: [Embedded Image Not Available] Laboratory Tests: 12/22 12/22 1546 1422 Chemistry Sodium (135 - 145 mEq/L) 139 Potassium (3.5 - 5.0 mEq/L) 3.4 L Chloride (100 - 115 mEq/L) 103 Carbon Dioxide (22 - 31 mEq/L) 26 Anion Gap (10 - 20) 13.50 BUN (7 - 18 mg/dL) 9 Creatinine (0.5 - 1.0 mg/dL) 0.7 Glomerular Filtr Rate (>60 ml/min) 118 Glucose (65 - 110 mg/dL) 73 Calcium (8.4 - 10.2 mg/dL) 9.8 Total Bilirubin (0.2 - 1.0 mg/dL) 0.8 AST (15 - 37 units/L) 18 ALT (12 - 78 units/L) 13 Total Alk Phosphatase (46 - 116 units/L) 54 Total Protein (6.3 - 8.2 gm/dL) 8.9 H Albumin (3.4 - 4.8 gm/dL) 4.4 Hematology WBC (6.5 - 12.3 K/mm3) 6.1 L RBC (3.51 - 4.69 M/mm3) 4.90 H Hgb (10.1 - 13.8 g/dL) 13.5 Hct (32.5 - 41.8 %) 41.8 MCV (84.6 - 96.6 fL) 85.3 MCH (27.3 - 33.9 pg) 27.6 MCHC (32.0 - 34.2 gm/dL) 32.3 RDW (12.2 - 16.3 %) 13.1 Plt Count (134 - 363 K/mm3) 346 MPV (9.2 - 12.7 fL) 10.4 Neut % (Auto) (57.9 - 77.3 %) 59.6 Lymph % (Auto) (14.5 - 29.7 %) 32.6 H Bates % (Auto) (3.6 - 10.2 %) 6.8 Eos % (Auto) (0.0 - 3.0 %) 0.3 Baso % (Auto) (0.1 - 0.9 %) 0.5 Neut # (Auto) (K/mm3) 3.7 Lymph # (Auto) (K/mm3) 2.0 Bates # (Auto) (K/mm3) 0.4 Eos # (Auto) (K/mm3) 0.02 Baso # (Auto) (K/mm3) 0.0 Miscellaneous Maternal Serum HCG 71123 Urines Urine Color (YELLOW) YELLOW Urine Appearance (CLEAR) CLEAR Urine pH (5 - 9) 5.0 Ur Specific Alvin (1.001 - 1.035) 1.024 Urine Protein (NEG) NEGATIVE Urine Glucose (UA) (NEG) NEGATIVE Urine Ketones (NEG) NEGATIVE Urine Blood (NEG) NEG Urine Nitrite (NEG) NEG Urine Bilirubin (NEG) NEGATIVE Urine Urobilinogen (NEG mg/dL) NEGATIVE Ur Leukocyte Esterase (NEG) NEG Urine RBC (NONE SEEN #/hpf) 0-2 Urine WBC (NONE SEEN #/hpf) 0-2 Ur Epithelial Cells (RARE - FEW #/HPF) RARE Urine Mucus (NONE SEEN) 4+ Recent Impressions: ULTRASOUND - DUP AB/PEL/SC/LTD 12/22 1454 Report Impression - Status: SIGNED Entered: 12/22/20211616 IMPRESSION: 1. Live intrauterine gestation with estimated ag e of 6 weeks and 0 days. 2. Suspect right adnexal hydrosalpinx. Impression By: Chelsi De MD ULTRASOUND - US PREG UT TRANSVAGINAL 12/22 1454 Report Impression - Status: SIGNED Entered: 12/22/20211616 IMPRESSION: 1. Live intrauterine gestation with estimated ag e of 6 weeks and 0 days. 2. Suspect right adnexal hydrosalpinx. Impression By: Chelsi De MD ULTRASOUND - US PREG EVAL 1ST TRIMTR 12/22 1454 Report Impression - Status: SIGNED Entered: 12/22/20216 IMPRESSION: 1. Live intrauterine gestation with estimated ag e of 6 weeks and 0 days. 2. Suspect right adnexal hydrosalpinx. Impression By: [email or web address] - Klaus De MD Patient Discharge Departure Vital Signs/Condition Vital Signs First Documented: Result Date Time Pulse Ox 100 03/ 1437 B/P 118/75 03/08 1437 B/P Mean 89 03/08 1437 O2 Delivery Room air 03/ 1437 Temp 36.8 03/08 1437 Pulse 100 03/08 1437 Resp 18 03/08 1437 Last Documented: Result Date Time Pulse Ox 100 03/08 1437 B/P 118/75 03/08 1437 B/P Mean 89 03/08 1437 O2 Delivery Room air 03/08 1437 Temp 36.8 03/08 1437 Pulse 100 03/08 1437 Resp 18 /08 1437 All vital signs available at the time of this en try have been reviewed. Condition Stable, Improved Clinical Impression Clinical Impression Primary Impression: Pelvic pain affecting pregna ncy Time of Impression 1627 Disposition Decision Discharge )( Discharged to Home Yes )( Time 1627 )( Date 12/22/21 Discharge/Care Plan Patient Instructions ED Abdominal Pain, Early Pr egnancy Departure Forms WORK/SCHOOL EXCUSE VARIABLE Restrictions apply through 12/25/21 at 0618 RPT #:[id number] END OF REPORT
[2023-04-19] MEDS ORDERED: dexAMETHasone 10 MG/ML VIAL ONE (10:13)
--- NOTE | 2023-04-19 10:29 | ER ---
Nurse's Notes [facility] Name: Veda Miller Age: 22 yrs Sex: Female : 2000 Arrival Date: 04/19/2023 Time: 09:46 Bed 18 Private MD: Diagnosis: Streptococcal pharyngitis Presentation: 04/19 09:58 Chief complaint: Patient states: Sore throat x 1 day. Coronavirus screen: At this time, jl7 the client does not indicate any symptoms associated with coronavirus-19. Ebola Screen: No symptoms or risks identified at this time. Initial Sepsis Screen: Does the patient meet any 2 criteria? No. Patient's initial sepsis screen is negative. Does the patient have a suspected source of infection? No. Patient's initial sepsis screen is negative. Risk Assessment: Do you want to hurt yourself or someone else? Patient reports no desire to harm self or others. Onset of symptoms was April 17, 2023. 09:58 Method Of Arrival: Ambulatory [facility] 09:58 Acuity: DAVE 4 jl7 Triage Assessment: 10:00 General: Appears in no apparent distress. uncomfortable, Behavior is calm, cooperative, jl7 appropriate for age. Pain: Complains of pain in throat. EENT: Throat is reddened has patchy exudate. 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 - Social history:: Smoking status: Patient denies any tobacco usage or history of. Screenin:51 [facility] ED Fall Risk Assessment (Adult) History of falling in the last 3 months, bp including since admission No falls in past 3 months (0 pts). Abuse screen: Denies threats or abuse. Denies injuries from another. Nutritional screening: No deficits noted. Tuberculosis screening: No symptoms or risk factors identified. Assessment: 10:51 Reassessment: [facility]. Respiratory: Airway is patent Respiratory effort is bp even, unlabored, Breath sounds are clear bilaterally. Vital Signs: 09:58 BP 118 / 89; Pulse 89; Resp 17; Temp 99.2; Pulse Ox 100% ; Weight 56.25 kg; Height 5 7 ft. 0 in. ; Pain 01/24; 09:58 Body Mass Index 24.22 (56.25 kg, 152.4 cm) [facility] 09:58 Pain Scale: Adult [facility] ED Course: 09:48 Patient arrived in ED. mr 09:53 Rishi Hollis PA is PHCP. [facility] 09:53 Yeyo Bullock DO is Attending Physician. [facility] 09:58 Sera Samaniego, CARITO is Primary Nurse. [facility] 10:00 Triage completed. jl7 10:00 Arm band placed on right wrist. jl7 10:51 Patient has correct armband on for positive identification. bp 10:51 No provider procedures requiring assistance completed. Patient did not have IV access bp during this emergency room visit. Administered Medications: 10:15 Drug: Dexamethasone IM 10 mg Route: IM; Site: right gluteus; bp 10:31 Follow up: Response: No adverse reaction bp 10:31 Drug: Rocephin (cefTRIAXone) IM 1 grams Route: IM; Site: left gluteus; bp 10:53 Follow up: Response: No adverse reaction bp Medication: 10:51 VIS not applicable for this client. bp Outcome: 10:28 Discharge ordered by MD. [facility] 10:51 Discharged to home ambulatory. bp 10:51 Condition: stable 10:51 Discharge instructions given to patient, Instructed on discharge instructions, follow up and referral plans. medication usage, Demonstrated understanding of instructions, follow-up care, medications, Prescriptions given X 1. 10:53 Patient left the ED. bp Signatures: Rishi Hollis PA PA [facility] Michela Carrillo mr Sera Samaniego, RN RN [facility] López Cortez, RN RN bp
--- NOTE | 2023-04-19 10:29 | EDPHYS ---
Physician Documentation [facility] Name: Veda Miller Age: 22 yrs Sex: Female : 2000 Arrival Date: 04/19/2023 Time: 09:46 Bed 18 Private MD: ED Physician Yeyo Bullock HPI: 04/19 10:01 This 22 yrs old Black Female presents to ER via Ambulatory with complaints of Sore jmm Throat. 10:01 The patient presents with sore throat. Onset: The symptoms/episode began/occurred jmm gradually. Modifying factors: The symptoms are alleviated by nothing, the symptoms are aggravated by nothing. Associated signs and symptoms: Pertinent negatives fever. This is a 22 year old female with a history of ALL, that presents to the ED with complaints of sore throat beginning approx 1 day ago. Has had similar episodes with previous diagnosis of strep pharyngitis. . 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 - Social history:: Smoking status: Patient denies any tobacco usage or history of. ROS: 10:01 Constitutional: Positive for body aches. jmm 10:01 ENT: Positive for sore throat. 10:01 All other systems are negative. Exam: 10:01 Constitutional: This is a well developed, well nourished patient who is awake, alert, jmm and in no acute distress. Head/Face: atraumatic. Eyes: EOMI, no conjunctival erythema appreciated 10:01 Neck: Trachea midline, Supple Chest/axilla: Normal chest wall appearance and motion. Cardiovascular: Regular rate and rhythm. No edema appreciated Respiratory: Normal respirations, no respiratory distress appreciated Abdomen/GI: Non distended Back: Normal ROM Skin: General appearance color normal MS/ Extremity: Moves all extremities, no obvious deformities appreciated, no edema noted to the lower extremities Neuro: Awake and alert Psych: Behavior is normal, Mood is normal, Patient is cooperative and pleasant 10:01 ENT: Posterior pharynx: Airway: normal, no evidence of obstruction, Uvula: midline, erythema, that is moderate, peritonsillar mass, is not appreciated. Vital Signs: 09:58 BP 118 / 89; Pulse 89; Resp 17; Temp 99.2; Pulse Ox 100% ; Weight 56.25 kg; Height 5 jl7 ft. 0 in. ; Pain 4/10; 09:58 Body Mass Index 24.22 (56.25 kg, 152.4 cm) 7 09:58 Pain Scale: Adult jl7 MDM: 10:01 Patient medically screened. [facility] 10:26 Differential diagnosis: pharyngitis. Data reviewed: vital signs, nurses notes, lab test [facility] result(s). Counseling: I had a detailed discussion with the patient and/or guardian regarding: the historical points, exam findings, and any diagnostic results supporting the discharge/admit diagnosis, lab results, the need for outpatient follow up, to return to the emergency department if symptoms worsen or persist or if there are any questions or concerns that arise at home. ED course: PE findings not consistent with harsh SAHNI. Advised to follow up with pcp and otherwise given strict return precautions. gisellaetn understood and agrees with the plan of care. . 04/19 10:01 Order name: Strep; Complete Time: 10:23 [facility] Administered Medications: 10:15 Drug: Dexamethasone IM 10 mg Route: IM; Site: right gluteus; bp 10:31 Follow up: Response: No adverse reaction bp 10:31 Drug: Rocephin (cefTRIAXone) IM 1 grams Route: IM; Site: left gluteus; bp 10:53 Follow up: Response: No adverse reaction bp Disposition: 11:19 Co-signature as Attending Physician, Yeyo Bullock DO I was immediately available on-site ms3 in the Emergency Department for consultation in the care of the patient. Disposition Summary: 04/19/23 10:28 Discharge Ordered Location: Home [facility] Condition: Stable [facility] Diagnosis - Streptococcal pharyngitis [facility] Followup: [facility] - With: Private Physician - When: 2 - 3 days - Reason: Recheck today's complaints, Continuance of care, Re-evaluation by your physician Discharge Instructions: - Discharge Summary Sheet [facility] - Strep Throat, Adult m Forms: - Medication Reconciliation Form [facility] - Thank You Letter [facility] - Antibiotic Education [facility] - Prescription Opioid Use [facility] - [email or web address] jmm - Work release form bp Prescriptions: - cefdinir 300 mg Oral capsule - take 1 capsule by ORAL route every 12 hours for 10 days; 20 capsule; Refills: brooks 0, Product Selection Permitted Signatures: Dispatcher [employer] Rishi Duggan PA PA jmm Leal, Jahala, RN RN jl7 López Cortez RN RN bp Yeyo Bullock DO DO ms3
[2023-04-19] MEDS ORDERED: CEFTRIAXONE 1000 MG/VIAL ONE (10:36)
[2023-04-19] MEDS ORDERED: LIDOCAINE 1% MPF 5 ML VIAL ONE (10:36)
[2023-04-19 10:58] VITALS: BP 118/89; TEMP 99.2; O2SAT 100
== END 2023-04-19 10:53 | disposition home or self-care (01) ==
LOC: ER 09:46
DX: J02.9 Acute pharyngitis, unspecified (principal); Z88.0 Allergy status to penicillin
CPT/HCPCS: 87081; 96372; 99284; J2001; J1100; J0696